=== PATIENT | female | born 1985 | race Caucasian/White ===

== ENCOUNTER → 2017-03-21 | Emergency (ER) | payer OTHER ==
[~2017-03-21] VITALS: Ht 162.6 cm; Wt 75.3 kg
--- NOTE | 2017-03-21 19:25 | Emergency Room Report ---
History of Present Illness Time Seen by 1921 Presenting Problem in Triage Pt arrived:Walked Presenting Problem:PATIENT WAS INMATE AT [facility]. EVERYONE IN CELL WAS BROUGHT IN FOR CLEARANCE. 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 N Clinical Suspician of Infection? N Mental Status: 1 - Regular (Normal Baseline) Sepsis Risk:Low Sepsis Risk Have you (or family members/close friends) recently traveled outside the [place]? N If Yes, where/when: Have you had exposure to infectious disease within the past month? N TB? Other? Specify: I agree with the above history. Source patient, RN notes reviewed, police, EMS Exam Limitations no limitations ALLERGIES Coded Allergies: No Known Allergies (03/21/17) Home Medications Reported Medications No Known Home Medications History Medical History General CAD? No Angina: No [place]: No Hypertension? No Hyperlipidemia? No CHF? No DVT? No PE? No COPD? No Asthma? No Anemia? No GERD? No Gastric ulcers? No GI Bleed? No Hernia? No Thyroid Problems? No Hypothyroidism? No CVA? No Seizures? No Diabetes? No Renal Insuffiency? No End Stage Renal Disease? No UTI? No Stones? No BPH? No GB Disease: No Nephritic Syndrome? No Asplenia? No Hepatitis? No Sickle Cell Disease? No Arthritis? No Migraines? No Cataracts? No Glaucoma? No MRSA? No HIV? No TB? No Anxiety? No Depression? No Cancer? No More? 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 Respiratory no symptoms reported Cardiovascular no symptoms reported Gastrointestinal no symptoms reported Genitourinary no symptoms reported. Musculoskeletal no symptoms reported Skin no symptoms reported Psychiatric/Neurological no symptoms reported Physical Exam Vital Signs Vital Signs Date Time Temp Pulse Resp B/P Pulse O2 O2 Flow FiO2 Ox Delivery Rate 03/21 1938 98.7 84 18 106/74 99 03/21 1905 98.7 84 18 106/74 99 General Appearance normal appearance, WD/WN Eye Exam - bilateral eye normal exam, bilateral eye PERRL, bilateral eye EOMI Ear, Nose, Throat hearing grossly normal, normal ENT inspection Neck normal inspection, non-tender, supple, full range of motion Respiratory Status Yes: trachea midline, chest symmetrical, non tender chest. No: respiratory distress. Lung Sounds bilateral: normal breath sounds, lungs clear. 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 No Results/Orders Laboratory Tests 03/21/171916: Opiates Screen NEGATIVE, Urine Methadone Screen NEGATIVE, Barbiturates NEGATIVE, Phencyclidine Screen NEGATIVE, Amphetamines Screen NEGATIVE, Benzodiazepines Screen NEGATIVE, Cocaine Screen NEGATIVE, Marijuana (THC) Screen NEGATIVE, Urine Color YELLOW, Urine Appearance SL CLOUDY, Urine pH 7.5, Ur Specific [place] 1.020, Urine Protein NEGATIVE, Urine Ketones NEGATIVE, Urine Blood 2+ H, Urine Nitrate NEGATIVE, Urine Bilirubin NEGATIVE, Urine Urobilinogen 0.2, Ur Leukocyte Esterase NEGATIVE, Urine RBC NONE, Urine WBC NONE, Ur Squamous Epith Cells NONE, Urine Bacteria TRACE, Urine Glucose NEGATIVE Orders Procedure Date/time Status URINALYSIS/COMPLETE 03/21 1917 Complete DRUG ABUSE SCREEN (TRIAGE) 03/21 1917 Complete Departure Departure Time of Disposition 1922 Disposition DC Home or Self Care(routine) Clinical Impression Primary Impression: Medical clearance for incarceration Condition STABLE Additional Instructions The patient states that they have been for 3 hours, I contacted poison control, then revised report on exactly and tachycardia. The patient had neither she denied drug use. Discharge Counseling Counseled pt/family regarding diagnosis, test results, home care, follow up needs Prescriptions Current Visit Scripts No Known Home Medications ED Critical Care Critical Care No If Critical Care minutes are documented, the time involved in the performance of seperately reportable procedures was not counted toward critical care time documented. I directly delivered medical care to this critically ill and/or injured patient. Timely evaluation and treatment was necessary to address the significant organ system(s) dysfunction present in this patient.
--- NOTE | 2017-03-21 19:25 | Emergency Room Report ---
History of Present Illness Time Seen by 1921 Presenting Problem in Triage Pt arrived:Walked Presenting Problem:PATIENT WAS INMATE AT [facility]. EVERYONE IN CELL WAS BROUGHT IN FOR CLEARANCE. 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 N Clinical Suspician of Infection? N Mental Status: 1 - Regular (Normal Baseline) Sepsis Risk:Low Sepsis Risk Have you (or family members/close friends) recently traveled outside the [place]? N If Yes, where/when: Have you had exposure to infectious disease within the past month? N TB? Other? Specify: I agree with the above history. Source patient, RN notes reviewed, police, EMS Exam Limitations no limitations ALLERGIES Coded Allergies: No Known Allergies (03/21/17) Home Medications Reported Medications No Known Home Medications History Medical History General CAD? No Angina: No [place]: No Hypertension? No Hyperlipidemia? No CHF? No DVT? No PE? No COPD? No Asthma? No Anemia? No GERD? No Gastric ulcers? No GI Bleed? No Hernia? No Thyroid Problems? No Hypothyroidism? No CVA? No Seizures? No Diabetes? No Renal Insuffiency? No End Stage Renal Disease? No UTI? No Stones? No BPH? No GB Disease: No Nephritic Syndrome? No Asplenia? No Hepatitis? No Sickle Cell Disease? No Arthritis? No Migraines? No Cataracts? No Glaucoma? No MRSA? No HIV? No TB? No Anxiety? No Depression? No Cancer? No More? 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 Respiratory no symptoms reported Cardiovascular no symptoms reported Gastrointestinal no symptoms reported Genitourinary no symptoms reported. Musculoskeletal no symptoms reported Skin no symptoms reported Psychiatric/Neurological no symptoms reported Physical Exam Vital Signs Vital Signs Date Time Temp Pulse Resp B/P Pulse O2 O2 Flow FiO2 Ox Delivery Rate 03/21 1938 98.7 84 18 106/74 99 03/21 1905 98.7 84 18 106/74 99 General Appearance normal appearance, WD/WN Eye Exam - bilateral eye normal exam, bilateral eye PERRL, bilateral eye EOMI Ear, Nose, Throat hearing grossly normal, normal ENT inspection Neck normal inspection, non-tender, supple, full range of motion Respiratory Status Yes: trachea midline, chest symmetrical, non tender chest. No: respiratory distress. Lung Sounds bilateral: normal breath sounds, lungs clear. 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 No Results/Orders Laboratory Tests 03/21/171916: Opiates Screen NEGATIVE, Urine Methadone Screen NEGATIVE, Barbiturates NEGATIVE, Phencyclidine Screen NEGATIVE, Amphetamines Screen NEGATIVE, Benzodiazepines Screen NEGATIVE, Cocaine Screen NEGATIVE, Marijuana (THC) Screen NEGATIVE, Urine Color YELLOW, Urine Appearance SL CLOUDY, Urine pH 7.5, Ur Specific [place] 1.020, Urine Protein NEGATIVE, Urine Ketones NEGATIVE, Urine Blood 2+ H, Urine Nitrate NEGATIVE, Urine Bilirubin NEGATIVE, Urine Urobilinogen 0.2, Ur Leukocyte Esterase NEGATIVE, Urine RBC NONE, Urine WBC NONE, Ur Squamous Epith Cells NONE, Urine Bacteria TRACE, Urine Glucose NEGATIVE Orders Procedure Date/time Status URINALYSIS/COMPLETE 03/21 1917 Complete DRUG ABUSE SCREEN (TRIAGE) 03/21 1917 Complete Departure Departure Time of Disposition 1922 Disposition DC Home or Self Care(routine) Clinical Impression Primary Impression: Medical clearance for incarceration Condition STABLE Additional Instructions The patient states that they have been for 3 hours, I contacted poison control, then revised report on exactly and tachycardia. The patient had neither she denied drug use. Discharge Counseling Counseled pt/family regarding diagnosis, test results, home care, follow up needs Prescriptions Current Visit Scripts No Known Home Medications ED Critical Care Critical Care No If Critical Care minutes are documented, the time involved in the performance of seperately reportable procedures was not counted toward critical care time documented. I directly delivered medical care to this critically ill and/or injured patient. Timely evaluation and treatment was necessary to address the significant organ system(s) dysfunction present in this patient.
[2017-03-21 19:26] LABS: URINE BILIRUBIN - DIPSTICK NEGATIVE (NEG); URINE BLOOD 2+ (NEG)
[2017-03-21 19:38] VITALS: BP 106/74
[2017-03-21 19:38] LABS: AMPHETAMINES/METAMPHETAMINES NEGATIVE ng/mL (<1000)
--- OUTSIDE RECORDS SUMMARY | 2017-03-28 23:10 | External Medical Summary Rpt ---
Author Author [facility] Organization [facility] Address Unknown Phone Unavailable Care Team Providers Care Enamel Applier Name Role Phone DR BRONSON PCP [phone] Encounter [facility] [id number] Date(s): 01/04/17 - 01/04/17 [facility] [address] [place] [address]- Discharge Disposition: OP Self Care or Home Attending Physician: CASS SESAY MD-EMR Admitting Physician: CASS SESAY MD-EMR Referring Physician: BRONSON, SELF REFERRED Reason for Visit ANXIETY Vital Signs Most recent 1 to oldest [Reference Range]: Temperature Tympanic Source (01/04/17 3:42 PM) Temperature Fahrenheit Mode (01/04/17 3:42 PM) Temperature, 98.5 Deg F Fahrenheit (01/04/17 3:42 PM) [96.8-99.7 Deg F] Clinical 36.9 Deg C Temperature, (01/04/17 3:42 PM) C Peripheral 130 bpm Pulse Rate *HI* [60-100 bpm] (01/04/17 3:42 PM) Respiratory 14 Breaths/Min Rate [14-20 (01/04/17 3:42 PM) Breaths/Min] Blood 130/90 mmHg Pressure (01/04/17 3:42 PM) [90-140/60-9 0 mmHg] Oxygen 97 % Saturation (01/04/17 3:42 PM) [94-100 %] Oxygen Room air Therapy Mode (01/04/17 3:42 PM) Height Stated Source (01/04/17 3:42 PM) Height Entry [place] Format (01/04/17 3:42 PM) Height/Lengt 5 ft h, [place] (01/04/17 3:42 PM) (ft) Height/Lengt 2 Inch h [place] (01/04/17 3:42 PM) CLINICALHEIG 157.48 cm HT (01/04/17 3:42 PM) Weight Standing scale Source, ED (01/04/17 3:42 PM) Weight Entry [place] Format (01/04/17 3:42 PM) Weight 160 lb [place] lb (01/04/17 3:42 PM) CLINICALWEIG 72.73 kg HT (01/04/17 3:42 PM) Body Surface 1.74 m2 Area (BSA) (01/04/17 3:42 PM) Body Mass 29.3 kg/m2 Index (BMI) *HI* [19.0-24.0 (01/04/17 3:42 PM) kg/m2] [place] Body 49.73 kg Weight (01/04/17 3:42 PM) Problem List Condition Effective Status Health Informant Dates Status Abdominal Active pain in (Co nfirmed) Carpal 09/08/13 Active tunnel syndrome on right(Confir med) Drug Active abuse(Confir med) Hepatitis Active C(Confirmed) Insufficient Active care(Confirm ed) Maternal Active tobacco abuse(Confir med) Pain in Active patient hip(Confirme d)1 (Co Active nfirmed) (Co Active nfirmed) UTI - Active urinary tract infection in (Co nfirmed) 1right hip Allergies, Adverse Reactions, Alerts Substance Reaction Severity Status sulfa drugs Active Medications cyclobenzaprine (cyclobenzaprine 10 mg oral tablet)1 Tab, Oral, Three Times A Day, As Needed, as needed for spasm, Refills: 0 gabapentin (gabapentin 600 mg oral tablet) 1 Tab, Oral, Three Times A Day, Refills: 1 Ordering provider: DELMER ZULETA MD Results No data available for this section Immunizations No data available for this section Procedures No data available for this section Social History Social History Response Type Smoking Status Current every day smoker Assessment and Plan No data available for this section Hospital Discharge Instructions No data available for this section
--- OUTSIDE RECORDS SUMMARY | 2017-03-28 23:10 | External Medical Summary Rpt ---
Author Author [facility] Organization [facility] Address Unknown Phone Unavailable Care Team Providers Care Director Water And Waste Services Name Role Phone DR BRONSON PCP [phone] Encounter [facility] [id number] Date(s): 12/24/16 - 12/25/[address] [place] [address] [facility] Discharge Diagnosis: Drug intoxication Discharge Diagnosis: Agitation Discharge Disposition: OP Self Care or Home Attending Physician: MALVIN LONG MD-EMR Admitting Physician: MALVIN LONG MD-EMR Referring Physician: FARSHAD DOBSON REFERRED Reason for Visit OD Vital Signs Most recent 1 2 3 to oldest [Reference Range]: Temperature Oral Oral (12/24/16 Source (12/25/16 2:39 AM) 11:17 PM) Temperature Fahrenheit Fahrenheit Mode (12/25/16 2:39 AM) (12/24/16 11:17 PM) Temperature, 98.2 Deg F 100.1 Deg F Fahrenheit (12/25/16 2:39 AM) *HI*(12/24/16 [96.8-99.7 11:17 PM) Deg F] Clinical 36.8 Deg C 37.8 Deg C Temperature, (12/25/16 2:39 AM) (12/24/16 11:17 C PM) Peripheral 97 bpm 130 bpm 108 bpm Pulse Rate (12/25/16 2:39 AM) *HI* *HI*(12/25/16 [60-100 bpm] (12/25/16 1:00 AM) 12:00 AM) Respiratory 18 Breaths/Min 18 Breaths/Min 18 Breaths/Min Rate [14-20 (12/25/16 1:00 AM) (12/25/16 12:00 (12/24/16 11:17 Breaths/Min] AM) PM) Blood 106/82 mmHg 139/117 mmHg 107/77 mmHg Pressure (12/25/16 2:39 AM) (12/25/16 1:00 AM) (12/25/16 12:00 [90-140/60-9 AM) 0 mmHg] Mean 90 mmHg 124.359805 mmHg 87 mmHg (12/25/16 Arterial (12/25/16 2:39 AM) (12/25/16 1:00 AM) 12:00 AM) Pressure (MAP) Mean 121 85 (12/25/16 12:00 Arterial (12/25/16 1:00 AM) AM) Pressure (MAP)-BMDI Oxygen 94 % 89 % 96 % (12/25/16 Saturation (12/25/16 2:39 AM) *LOW* 12:00 AM) [94-100 %] (12/25/16 1:00 AM) Oxygen Room air Room air Room air (12/25/16 Therapy Mode (12/25/16 2:39 AM) (12/25/16 1:00 AM) 12:00 AM) Problem List Condition Effective Status Health Informant [...] Reaction Severity Status sulfa drugs Active Medications gabapentin (gabapentin 600 mg oral tablet) 1 Tab, Oral, Three Times A Day, Refills: 1 Ordering provider: DELMER ZULETA MD gabapentin (Neurontin 600 mg oral tablet) 1 Tab, Oral, Every Day, Refills: 0 Ordering provider: DELMER ZULETA MD Results No data available for this section Immunizations No data available for this section Procedures No data available for this section Social History Social History Response Type Smoking Status Current every day smoker Assessment and Plan No data available for this section Hospital Discharge Instructions Patient EducationPolysubstance Abuse
--- OUTSIDE RECORDS SUMMARY | 2017-03-28 23:10 | External Medical Summary Rpt ---
Author Author [facility] Organization [facility] Address Unknown Phone Unavailable Care Team Providers Care Grocery Stocker Name Role Phone DR BRONSON PCP [phone] Encounter [facility] [id number] Date(s): 12/24/16 - 12/25/[address] [place] [address] [facility] Discharge Diagnosis: Drug intoxication Discharge Diagnosis: Agitation [...] [90-140/60-9 AM) 0 mmHg] Mean 90 mmHg 124.609000 mmHg 87 mmHg (12/25/16 Arterial (12/25/16 2:39 [...]
--- OUTSIDE RECORDS SUMMARY | 2017-03-28 23:10 | External Medical Summary Rpt ---
Author Author [facility] Organization [facility] Address Unknown Phone Unavailable Care Team Providers Care Business Analyst Sales Operations Name Role Phone DR BRONSON PCP [phone] Encounter [facility] [id number] Date(s): 01/04/17 - 01/04/17 [facility] [address] [place] [address]- Discharge Disposition: OP Self Care or Home [...] Stated Source (01/04/17 3:42 PM) Height Entry [place] Format (01/04/17 3:42 PM) Height/Lengt 5 ft h, [place] (01/04/17 3:42 PM) (ft) Height/Lengt 2 Inch h [place] (01/04/17 3:42 PM) CLINICALHEIG 157.48 cm HT (01/04/17 3:42 PM) Weight Standing scale Source, ED (01/04/17 3:42 PM) Weight Entry [place] Format (01/04/17 3:42 PM) Weight 160 lb Citizen [place] lb (01/04/17 3:42 PM) CLINICALWEIG 72.73 kg HT (01/04/17 3:42 PM) Body Surface 1.74 m2 Area (BSA) (01/04/17 3:42 PM) Body Mass 29.3 kg/m2 Index (BMI) *HI* [19.0-24.0 (01/04/17 3:42 PM) kg/m2] [place] Body 49.73 kg Weight (01/04/17 3:42 PM) [...]
--- OUTSIDE RECORDS SUMMARY | 2017-03-28 23:16 | External Medical Summary Rpt | CCD ---
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 D 0. NG J 5 S MG CL IN TA IC BL ET PH AR MA C CL 00 06 06 00 30 30 BU 24 NOBLE Ac ON 60 -1 -1 .0 RN 77 YS ti AZ 32 2- 8- 00 IN 71 ve EP 94 20 20 G DA AM 83 09 09 SP 2 RI D 0. NG J 5 S MG CL IN TA IC BL ET PH AR MA C ME 00 06 06 00 30 30 BU 24 NOBLE Ac TH 14 -1 -1 .0 RN 77 YS ti OC 31 2- 8- 00 IN 70 ve AR 29 20 20 G DA BA 20 09 09 SP MO 5 RI D L NG J 75 S 0 CL MG IN IC TA BL PH ET AR MA C CL 00 05 05 00 30 30 BU 24 NOBLE Ac ON 09 -1 -2 .0 RN 68 YS ti AZ 30 5- 1- 00 IN 87 ve EP 83 20 20 G DA AM 21 09 09 SP 0 RI D 0. NG J 5 S MG CL IN TA IC BL ET PH AR MA C VA 50 04 05 00 30 3 ME 25 NE Ac ED 38 -2 -0 .0 DI 86 WS ti NI 30 0- 7- 00 34 WA ve SO 04 20 20 CE NG LO 24 09 09 NT ER NE [address] FF UG RE MG S Y /5 L ML SO LN HY 10 04 04 00 30 30 BU [address] 70 -1 -2 .0 RN 55 YS ti OX 20 0- 3- 00 IN 89 ve YZ 01 20 20 G DA IN 10 09 09 SP E 1 RI D HC NG J L S 25 CL IN MG IC TA PH BL AR ET MA C CL 00 04 04 00 30 30 BU 24 NOBLE Ac ON 1 -2 .0 RN 58 YS ti AZ 30 7- 3- 00 IN 37 ve EP 83 20 20 G DA AM 21 09 09 SP 0 RI D 0. NG J 5 S MG CL IN TA IC BL ET PH AR MA C CL 57 03 03 00 30 30 EA 81 NOBLE Ac ON 66 -0 -[address] 84 YS ti AZ 40 9- 6- 00 69 ve EP 27 20 20 BE DA AM [address] D 0. AD J 5 T MG CL IN TA IC BL ET PH AR MA CY CL 00 02 02 00 30 30 BU 24 NOBLE Ac ON 09 -1 -2 .0 RN 32 YS ti AZ 30 3- 6- 00 IN 80 ve EP 83 20 20 G DA AM 20 09 09 SP 5 RI D 0. NG J 5 S MG CL IN TA IC BL ET PH AR MA C CL 00 01 01 00 6. 3 H 14 BR Ac ON 18 -0 -1 00 & 74 OD ti AZ 50 5- 5- 0 N 48 SK ve EP [address] 4 Y AM 40 09 09 UG KE 1 5 S NN IN ET MG C H M TA BL ET ME 68 01 01 00 30 30 H 14 KA Ac LO 38 -0 -1 .0 & 74 RA ti XI 20 7- 5- 00 N 99 VIET[place]ESE ve CA [address] 9 L M 00 09 09 UG AJ 7. 5 S IT 5 IN H MG C K TA BL ET TR 00 12 12 00 6. 3 RI 10 DA Ac AM 09 -0 -1 00 TE 21 NS ti AD 30 7- 8- 0 93 ER ve OL 05 20 20 AI 5 EA 80 08 08 D U HC 1 PH LO L AR ZA 50 M NN #3 E MG 91 6 TA BL ET 63 12 12 00 30 10 CO 46 GI Ac 30 -0 -1 .0 MM 71 LL ti 40 8- 8- 00 UN 14 ve 65 20 20 IT DM 70 [address] REY UG UL A OF K MA NC HE ST ER CL 00 11 12 00 60 30 H 14 BR Ac ON 18 -0 -1 .0 & 69 OD ti AZ 50 3- 8- 00 N 96 SK ve EP [address] 1 Y AM 40 08 08 UG KE 1 5 S NN IN ET MG C H M TA BL ET 00 12 12 00 10 3 RI 10 DA Ac 09 -0 -1 .0 TE 21 NS ti 10 7- 8- 00 93 ER ve 69 20 20 AI 2 EA 01 08 08 D U 0 PH LO AR ZA M NN #3 E 91 6 Immunization Name Date Rout CVX Reac Dose Comm Prov Is Faci e tion ent ider Refu lity Give sed n RHO( 04-2 NAYLA No NAYLA D) 5-20 [facility] 12 [facility] HOSP GLOB ITAL ITAL ULIN DANDRE N FULL -DOS E IM Results Labs Lab Lab Date Result Refere Interp Status Commen Order Detail nces retati t Range on Bacteria XXX Ql Wet Prep (01-30-2017 20:30) T No No complet vaginal 017 Trichom Trichom ed is XXX 20:30 onas onas Ql Wet seen seen Prep Clue No Clue No Clue complet Cells 017 cells cells ed XXX Ql 20:30 seen seen Wet Prep WBC XXX 3+ No complet Ql Wet 017 WBC's WBC's ed Prep 20:30 seen seen Hydatid No No complet Cyst 017 Hyphal Hyphal ed XXX Wet 20:30 element element Prep s seen s seen Yeast No No complet Genital 017 yeast yeast ed Ql Wet 20:30 seen seen Prep MORIS Prep XXX (01-30-2017 20:30) MORIS No No complet Prep 017 yeast yeast ed Nail 20:30 or or hyphal hyphal element element s seen s seen Procedures Procedure DOS Code Location Performer Comment GROUND A0425 [facility] DAV[facility] MILEAGE 7 FAYETTE FAYETTE PER URBAN URBAN STATUTE COG[facility] [facility]T MILE AMBULANCE A0429 [facility] DAV[facility] SERVICE 7 FAYETTE FAYETTE BLS URBAN URBAN EMERGENCY COGOVT COGOVT TRANSPORT GROUND A0425 [facility] MILEAGE 7 FIRE & FIRE & PER EMERGENCY EMERGENCY STATUTE S S MILE AMB A0427 [facility] SERVICE 7 FIRE & FIRE & ALS EMERGENCY EMERGENCY EMERGENCY S S TRANSPORT LEVEL 1 ECG 32685 [facility] ROUTINE 7 LTH ECG SPECIALIS W/LEAST TS OF 12 LDS I&R ONLY RADEX 86697 MYLESATIO JAEL HAND 6 N MINIMUM 3 [facility] V[facility] 49380 [facility]K DISCHARGE 6 MEDICAL DAY ASSOCIATE MANAGEMEN S T 30 MIN/< SBSQ 44642 [facility] 6 MEDICAL [place] CARE/DAY ASSOCIATE 25 S MINUTES CREATININ 08094 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 E OTHER 6 KATY KATY SOURCE HOLDINGS HOLDINGS IADNA 76195 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 HEPATITIS 6 KATY KATY C QUANT HOLDINGS HOLDINGS & REVERSE TRANSCRIP TION BLOOD 78936 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 COUNT 6 KATY KATY COMPLETE HOLDINGS HOLDINGS AUTO&AUTO DIFRNTL WBC 25 35169 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 HYDROXY 6 KATY KATY INCLUDES HOLDINGS HOLDINGS FRACTIONS IF PERFORMED GLUCOSE 37678 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 QUANTITAT 6 KATY KATY CHRISTIANO BLOOD HOLDINGS HOLDINGS XCPT REAGENT STRIP LACTATE 17709 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 DEHYDROGE 6 KATY KATY NASE LDH HOLDINGS HOLDINGS BLOOD 78647 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 COUNT 6 KATY KATY COMPLETE HOLDINGS HOLDINGS AUTO&AUTO DIFRNTL WBC IADNA 30157 MEDICAL MEDICAL NEISSERIA 6 DIAGNOSTI DIAGNOSTI [facility] C LAB LLC GONORRHOE AE AMPLIFIED PROBE TQ IADNA 38931 MEDICAL MEDICAL CHLAMYDIA 6 [facility]AG[facility]I DIAGNOSTI [facility] C LAB LLC TRACHOMAT IS AMPLIFIED PROBE TQ CREATININ 88299 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 E OTHER 6 KATY [place] [address] 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 BLOOD/URI 6 KATY KATY C ACID HOLDINGS [place] 22689 EV KRI EV KRI UTERUS 6 W/DETAIL TR 1ST GESTATION TRANSFERA 68706 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 SE 6 KATY KATY ASPARTATE HOLDINGS HOLDINGS AMINO AST SGOT TRANSFERA 61547 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 SE 6 KATY KATY ALANINE HOLDINGS HOLDINGS AMINO ALT SGPT IADNA 94898 MEDICAL MEDICAL TRICHOMON 6 DIAGNOSTI DIAGNOSTI C LAB LLC C LAB LLC VAGINALIS AMPLIFIED PROBE TECH IADNA 04177 MEDICAL MEDICAL TRICHOMON 6 DIAGNOSTI DIAGNOSTI C LAB LLC C LAB LLC VAGINALIS AMPLIFIED PROBE TECH IADNA 37284 MEDICAL MEDICAL ZULAY 6 DIAGNOSTI DIAGNOSTI SPECIES C LAB LLC C LAB LLC AMPLIFIED PROBE TQ IADNA 41236 MEDICAL MEDICAL GARDNEREL 6 DIAGNOSTI DIAGNOSTI LA C LAB LLC C LAB LLC VAGINALIS AMPLIFIED PROBE TQ IADNA 71867 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 CHLAMYDIA 6 KATY KATY HOLDINGS HOLDINGS TRACHOMAT IS AMPLIFIED PROBE TQ CULTURE 15407 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 BACTERIAL 6 KATY KATY HOLDINGS HOLDINGS QUANTTATI VE COLONY COUNT URINE CREATININ 73111 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 E OTHER 6 KATY KATY SOURCE HOLDINGS HOLDINGS IADNA 11936 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 NEISSERIA 6 KATY KATY HOLDINGS HOLDINGS GONORRHOE AE AMPLIFIED PROBE TQ IADNA NOS 32621 MEDICAL MEDICAL 6 DIAGNOSTI DIAGNOSTI AMPLIFIED C LAB LLC C [place] [address] [place] 5 MEDICAL ASIF UTERUS SERV LIMITED FOUNDATIO 1/> N FETUSES [place] PREG 11703 [place] UTERUS 5 MEDICAL ASIF REAL TIME SERV W/IMAGE FOUNDATIO DCMTN N TRANSVAG AMB A0427 [facility] DAV[facility] SERVICE 5 FAYETTE FAYETTE ALS URBAN URBAN EMERGENCY COGOVT COGOVT TRANSPORT LEVEL 1 GROUND A0425 DAVID DAVID MILEAGE 5 FAYETTE FAYETTE PER URBAN URBAN STATUTE COGOVT COGOVT MILE DUP-SCAN 73994 KRISTOFER CONDE ARTL GERARDO 5 MEDICAL ASIF ABDL/PEL/ SERV SCROT&/RP FOUNDATIO R ORGN N COM GROUND A0425 [facility] 4 FIRE & FIRE & PER EMERGENCY EMERGENCY STATUTE S S MILE AMBULANCE A0429 [facility] SERVICE 4 FIRE & FIRE & BLS EMERGENCY EMERGENCY EMERGENCY S S TRANSPORT SIMPLE 77563 [facility] REPAIR 4 REGIONAL REGIONAL SCALP/NEC MEDICAL MEDICAL K/AX/JOY T/TRUNK 2.5CM/< RADEX 85438 RADI[facility] ENRIQUEZ SEA SPINE 4 LUMBOSACR ASSOCIATE AL S OF ALONZO MINIMUM 4 VIEWS AMBULANCE A0429 [facility] SERVICE 4 FIRE & FIRE & BLS EMERGENCY EMERGENCY EMERGENCY S S TRANSPORT GROUND A0425 [facility] 4 FIRE & FIRE & PER EMERGENCY EMERGENCY STATUTE S S MILE RADIOLOGI 86549 RADIOLOGY ENRIQUEZ SEA C EXAM 4 SACROILIA ASSOCIATE C JOINTS S OF ALONZO 3/MORE VIEWS URINALYSI 48783 [facility] 4 [facility] HE[facility] IA SCR CARE XCPT CULTURE/D IPSTICK URINE 60182 [facility]INE V[facility] 4 [facility] TEST HEALTH VISUAL CARE COLOR CMPRSN METHS NEURAXIAL 36095 [facility] LABOR 4 ANESTHESI GAR ANALG/ANE A PSC S PLND VAGINAL DELIVERY 08559 [facility] NONSTRESS 4 [facility] TEST HEALTH CARE VAGINAL 25317 [facility] [place] DELIVERY 4 [facility] ONLY HEALTH W/POSTPAR CARE HUMZA CARE OTHER 7359 [facility] MANUALLY 4 EAST EAST ASSISTED DELIVERY URINALYSI 58733 [facility] 4 PRIMARY JR SENAIT BACTERIUR HEALTH IA SCR CARE XCPT CULTURE/D IPSTICK 94957 TERE V[place] NONSTRESS 4 PRIMARY JR SENAIT TEST HEALTH CARE DOPPLER 53645 TERE VELOUDIS VELOCIMET 4 PRIMARY JR SENAIT RY HEALTH UMBILICAL CARE ARTERY US PREG 47593 TERE VELOUDIS UTERUS 4 PRIMARY JR SENAIT REAL TIME HEALTH F/U CARE TRNSABDL PER FETUS URINALYSI 21235 TERE VELOUDIS S 4 PRIMARY JR SENAIT BACTERIUR HEALTH IA SCR CARE XCPT CULTURE/D IPSTICK 02241 TERE [place] BIOPHYSIC 4 PRIMARY JR SENAIT AL HEALTH PROFILE CARE W/O NON-STRES S TESTING 09532 TERE [place] BIOPHYSIC 4 PRIMARY JR SENAIT AL HEALTH PROFILE CARE W/O NON-STRES S TESTING US PREG 18697 TERE [place] UTERUS 4 PRIMARY JR SENAIT AFTER 1ST HEALTH TRIMEST CARE GESTATION URINALYSI 72593 TERE VELOUDIS S 4 PRIMARY JR SENAIT BACTERIUR HEALTH IA SCR CARE XCPT CULTURE/D IPSTICK DOPPLER 08648 TERE V[place] VELOCIMET 4 PRIMARY JR SENAIT RY HEALTH UMBILICAL CARE ARTERY DOPPLER 14663 [facility] VELOCIMET 4 PRIMARY JR SENAIT RY HEALTH UMBILICAL CARE ARTERY IADNA 87214 ASSOCIATE ANGLE FRANKLIN STREPTOCO 4 D CCUS PATHOLOGI [facility] ST[facility] AMPLIFIED PROBE TQ US PREG 61262 TERE VELOUDIS UTERUS 4 PRIMARY JR SENAIT REAL TIME HEALTH F/U CARE TRNSABDL PER FETUS URINALYSI 70597 LOCY VELOUDIS S 4 PRIMARY JR SENAIT BACTERIUR HEALTH IA SCR CARE XCPT CULTURE/D IPSTICK COLLECTIO 00385 ASSOCIATE ANGLE FRANKLIN N VENOUS 4 D BLOOD PATHOLOGI VENIPUNCT STS LLC URE 53254 TERE V[place] BIOPHYSIC 4 PRIMARY JR SENAIT AL HEALTH PROFILE CARE W/O NON-STRES S TESTING URINALYSI 38468 [place] S 4 PRIMARY [facility] IA SCR CARE XCPT CULTURE/D IPSTICK URINALYSI 92802 LOCY VELOUDIS S 4 [facility] SCR CARE XCPT CULTURE/D IPSTICK URINALYSI 30608 TERE VELOUDIS S 4 PRIMARY [facility] IA SCR CARE XCPT CULTURE/D IPSTICK BLOOD 53843 [facility] TYPING 4 [facility] SEROLOGIC RH (D) ANTIBODY 15859 [facility] SCREEN 4 [facility] RBC EACH SERUM TECHNIQUE URINALYSI 24418 TERE V[place]OU[place] S 4 PRIMARY [facility] IA SCR CARE XCPT CULTURE/D IPSTICK BLOOD 98403 [facility] TYPING 4 [facility] SEROLOGIC [place]BO [place] PREG 73649 TERE [place] UTERUS 4 [facility] W[facility] HE[facility] CARE TR 1ST GESTATION THERAPEUT 35102 [facility] IC 4 EAST EAST PROPHYLAC TIC/DX INJECTION SUBQ/IM URINALYSI 41302 TERE RASHEEDOUDIS S 4 PRIMARY [facility] IA SCR CARE XCPT CULTURE/D IPSTICK COLLECTIO 72415 ASSOCIATE ANGLE SCHULTE VENOUS 4 D BLOOD PATHOLOGI VENIPUNCT [facility] URE URINE 16908 [facility] 4 ST GLE TEST BLUEGRASS VISUAL INC COLOR CMPRSN METHS CULTURE [address] QUANTTATI VE COLONY COUNT URINE URNLS DIP [address] STICK/TAB LET REAGENT AUTO MICROSCOP Y THERAPEUT [address] PROPHYLAC TIC/DX INJECTION SUBQ/IM GROUND A[address] PER EMERGENCY EMERGENCY STATUTE AMBULA AMBULA MILE AMB A[address] ALS EMERGENCY EMERGENCY EMERGENCY AMBULA AMBULA TRANSPORT LEVEL [address] TEST IADNA [address] GONORRHOE AE DIRECT PROBE TQ IADNA 35449 PATHOLOGY PICKLESIM PAPILLOMA 2 & ER JR LISA VIRUS CYTOLOGY HUMAN LAB AMPLIFIED PROBE TQ CYTP C/V 88069 PATHOLOGY PICKLESIM AUTO THIN 2 & ER JR LISA LYR CYTOLOGY PREPJ SCR LAB MNL RESCR PHYS THERAPEUT [address] PROPHYLAC TIC/DX INJECTION SUBQ/IM US PREG 10414 [facility]ASM[facility] UTERUS 2 AFTER 1ST TRIMEST 1/1ST GESTATION 48590 [facility] BIOPHYSIC 2 AL PROFILE W/O NON-STRES S TESTING COMPREHEN [address] METABOLIC PANEL CULTURE [address] QUANTTATI VE COLONY COUNT URINE DRUG SCR G0434 [address] CHROMATOG RAPHIC; ANY NUMBER PT ENC URNLS DIP [address] STICK/[place] [address] HYDRATION EACH ADDITIONA L HOUR THER [address] NJX IV PUSH SINGLE/1S T SBST/DRUG BLOOD [address] COMPLETE AUTO&[place] [address] THERAPEUT 95985 PHYSICIAN SINK DONTAE IC 2 SERVICES PROPHYLAC OF TIC/DX MEMORI INJECTION SUBQ/IM RHO(D) [address] GLOBULIN HUMAN FULL-DOSE IM URNLS DIP 67146 PHYSICIAN PHYSICIAN 2 SERVICES SERVICES STICK/TAB OF OF LET RGNT MEMORI MEMORI NON-AUTO W/O MICRSCP COLLECTIO [address] [place] [address] [facility]ASM[facility] RETROPERI 2 TONEAL [place] [address] PHYSICIAN PHYSICIAN 2 SERVICES SERVICES UTERUS OF OF LIMITED MEMORI MEMORI 1/> FETUSES DRUG SCR G0434 [facility] NOT 2 WOMEN'S WOMEN'S CHROMATOG CARE PLLC CARE PLLC RAPHIC; [place] [address]40 [place] MADELINE UTERUS 2 WOMEN'S FRA AFTER 1ST CARE PLLC TRIMEST 1/ GESTATION DRUG SCR G0434 [facility] NOT 2 WOMEN'S WOMEN'S CHROMATOG CARE PLLC CARE PLLC RAPHIC; ANY NUMBER PT ENC CYTP C/V 29880 PICKLESIM PATHOLOGY AUTO THIN 1 ER JR LISA & LYR CYTOLOGY PREPJ SCR LAB [place] P[place] 78726 MADELINE MADELINE UTERUS 1 FRA FRA REAL TIME W/IMAGE DCMTN TRANSVAG IADNA 58407 PICKLESIM PATHOLOGY NEISSERIA 1 ER JR LISA & CYTOLOGY GONORRHOE LAB AE AMPLIFIED PROBE TQ IADNA 86524 PICKLESIM PATHOLOGY CHLAMYDIA 1 ER JR LISA & CYTOLOGY TRACHOMAT LAB IS AMPLIFIED PROBE TQ INJECTION [address] [place] [address] [place]OMY[place] [address] [place] [address] THERAPY/P ROPHYLAXI S /DX 1ST TO [address] DAPTOMYCI N [address] INJE[address] DAPTOMYCI N [address] [place] [address] DAPTOMYCI N 1 MG SBSQ 83026 [facility] 1 OSCAR OSCAR CARE/DAY 25 MINUTES SBSQ 04465 [facility] 1 OSCAR OSCAR CARE/DAY 25 MINUTES SBSQ 94263 [facility] 1 OSCAR OSCAR CARE/DAY 25 MINUTES SBSQ 64775 [facility] 1 MOHSEN MOHSEN CARE/DAY 25 MINUTES THROMBOPL [address] TIME PARTIAL PLASMA/WH OLE BLOOD GROUND A0425 [facility] MILEAGE [address] [place] [address] PER EMERGENCY EMERGENCY STATUTE AMBULA AMBULA MILE AMBULANCE A0429 [facility] SERVICE [address] [place] [address] EMERGENCY EMERGENCY EMERGENCY AMBULA AMBULA TRANSPORT URNLS DIP [address] STICK/TAB LET REAGENT AUTO MICROSCOP Y COMPREHEN 15243 [facility] SIVE [address] [place] [address] METABOLIC PANEL PROTHROMB 32508 [facility] IN TIME [address] [place] [address] B[address] COMPLETE AUTO&[place] [address] [facility] HEAD/BRAI [address] [place] [address] N W/[place] [address] [facility] CERVICAL 0 [facility] ALB SPINE W/O CONTRAST MATERIAL RADEX 22213 [facility] FOOT 0 [facility] ALB COMPLETE MINIMUM 3 VIEWS RADIOLOGI 27690 [facility] C 0 [facility] ALB EXAMINATI ON TIBIA & FIBULA 2 VIEWS CIRCUMCIS 37059 OB RAÚL ION 0 HOSPITALI FRA W/CLAMP/O ST GROUP TH DEV W/[place] L[place]EL V 75150 [place] SURG 0 [facility] PATHOLOGY CLINIC PSC GROSS&OSMAN ROSCOPIC EXAM NEURAXIAL 29525 [facility] 0 ANESTHESI GAR ANALG/ANE A PSC S PLND VAGINAL DELIVERY VAGINAL 56820 SIVA PANIAGUA DELIVERY 0 [place] ONLY W/POSTPAR HUMZA CARE OBSERVATI 11270 AVINASH ZAMBRANO ON/INPATI 0 LEOPOLDO CARVER [facility] CARE 55 E MINUTES [facility] G0378 AVINASH DA SILVA OBSERVATI 0 ALISA CUELLAR ON [facility] PER HOUR CUL 18777 AVINASH DA SILVA PRSMPTV 0 ALISA CUELLAR PTHGNC [facility] SCRN W/COLONY ESTIMJ 67647 AVINASH DA SILVA BIOPHYSIC 0 ALISA CUELLAR AL [facility] W/O NON-STRES S TESTING COLLECTIO [address] [facility] VENOUS [address] [place] [address] BLOOD VENIPUNCT URE ANTIBODY [address] RBC EACH SERUM TECHNIQUE BLOOD [address] SEROLOGIC RH (D) BLOOD [address] SEROLOGIC ABO THERAPEUT [address] PROPHYLAC TIC/DX INJECTION SUBQ/IM ECHO 46297 SIVA PANIAGUA, 0 MAI A MAI A CARDIOVAS C W/WO M-MODE [place]ORDING [place] PREG 07484 SIVA PANIAGUA, UTERUS 0 MAI A MAI A W/DETAIL TR 1ST GESTATION THROMBOPL 64308 [facility] ASTIN [address] [place] [address] TIME PARTIAL PLASMA/WH OLE BLOOD COLLECTIO 53871 [facility] N VENOUS [address] [place] [address] BLOOD VENIPUNCT URE COMPREHEN 30784 [facility] SIVE [address] [place] [address] METABOLIC PANEL CREATINE [address] FRACTION ONLY PROTHROMB 08192 [facility] IN [address] NATRIURET [address] [place] [address] [facility] TROPONIN [address] [place] [address] QUANTITAT CHRISTIANO BLOOD [address] COMPLETE AUTO&AUTO DIFRNTL WBC CREATINE [address] TOTAL US PREG [address] [facility] RAD[facility]VANT UTERUS 0 AGE LLC AGE LLC AFTER 1ST TRIMEST GESTATION THERAPEUT [address] PROPHYLAC TIC/DX INJECTION SUBQ/[place] [address] AVINASH DA SILVA 0 BRECKINRI PARISAINRI [facility] 1/> FETUSES US PREG 55846 RADIOLOGY GRAY, UTERUS 0 SERVICES DHIRENKUM REAL TIME AR W/IMAGE DCMTN TRANSVAG CULTURE 48393 AVINASH DA SILVA BACTERIAL 0 BRECKINRI PARISAINRI [facility] VE COLONY COUNT URINE URINE 82495 EAMON EAMON 0 [facility] VISUAL CENTER CENTER COLOR CMPRSN METHS URINE [address] TEST VISUAL COLOR CMPRSN METHS LEVEL III 68316 AMES, AMES, SURG 9 [facility] PATHOLOGY GROSS&OSMAN ROSCOPIC EXAM LAPAROSCO 16798 [facility] SURG [address] [place] [address] CHOLECYST ECTOMY ECG 16374 [facility] ROUTINE [address] [place] [address] ECG W/LEAST 12 LDS TRCG ONLY W/O I&R ANES 57235 PHYSICIAN CHAMBERLA INTRAPERI 9 S [facility] UPPER OF ABDOMEN [facility] W/[place] [address] RADADVANT DOWNING, ABDOMEN 9 AGE LLC NITESH C W/CONTRAS T MATERIAL 3D 77868 [facility] DOWNING, RENDERING 9 [facility] NITESH C W/INTERP & POSTPROCE SS SUPERVISI ON CT PELVIS 16000 [facility], 9 [facility] NITESH C W/CONTRAS T MATERIAL CT PELVIS 54163 [facility], 9 [facility] NITESH C W/CONTRAS T MATERIAL 3D 43929 [facility], RENDERING 9 [facility] NITESH C W/INTERP & [place] [address] [facility] DOWN[facility], ABDOMEN 9 [facility] NITESH C W/CONTRAS T MATERIAL GROUND A[address] PER EMERGENCY EMERGENCY STATUTE MILE AMBULANCE AMBULANCE AMB A0427 [facility] [address] [place] [address] EMERGENCY EMERGENCY EMERGENCY AMBULANCE AMBULANCE TRANSPORT LEVEL 1 AMB A0427 [facility] [address] [place] [address] EMERGENCY EMERGENCY EMERGENCY AMBULANCE AMBULANCE TRANSPORT LEVEL 1 RADEX 01575 [facility] RIBS [address] W/POSTERO ANT CH MINIMUM 3 VIEWS RADIOLOGI [address] EXAMINAT[place] ON K[place] [address] [place] [address] [facility] DOWNING, HEAD/BRAI 9 [facility] NITESH C N W/O CONTRAST MATERIAL GROUND A[address] PER EMERGENCY EMERGENCY [place] [address] [facility], CERVICAL 9 [facility] NITESH C SPINE W/O CONTRAST MATERIAL 3D [address] W/INTERP & POSTPROCE SS SUPERVISI ON THERAPEUT [address] PROPHYLAC TIC/DX INJECTION SUBQ/IM AREO MASK A7015 [facility] USED W/ 9 CENTER CENTER DME NEB DRUGS DRUGS ADMN SET A7003 [facility] SM VOL 9 CENTER CENTER NONFILTR DRUGS DRUGS PNEUMAT NEBULIZR DISPBL NEBULIZER E0570 [facility] WITH 9 CENTER CENTER [place] [address] 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 FREE 9 [employer] [place] [address] 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 THYROID 9 [facility] [employer] STIMULATI HOLDING HOLDING NG [facility] [address] [facility], [facility] MANAGEMEN T 30 MIN/< SBSQ [address] 25 MINUTES SBSQ [address] 25 MINUTES RADIOLOGI [address] [facility] [place] PAD[place], C 8 RADIOLOGY GREGORY G EXAMINATI ON CHEST SINGLE VIEW FRONTAL INITIAL [address] 50 MINUTES Encounters Encounter Start End Date Code Location Performer Type Date EMERGENCY 18418 KEYLA REYNOSO 7 7 [facility] DEPARTMEN T VISIT EMERGENCY HIGH/URGE NT SEVERITY OFFICE 28780 ALEXIS GRACIA OUTPATIEN 6 6 D FAMILY SHE T VISIT MEDICAL 25 CE MINUTES OFFICE 75392 ALEXIS DICKEY OUTPATIEN 6 6 D FAMILY T VISIT MEDICAL 15 CE MINUTES EMERGENCY 62636 KEYLA ROJO 6 6 JR CAL FLORES DEPARTMEN T VISIT EMERGENCY MODERATE SEVERITY EMERGENCY 78281 KEYLA DELGADO 6 6 ANNA WILLS DEPARTMEN T VISIT EMERGENCY MODERATE SEVERITY EMERGENCY 38862 LIZA DE JESUS 6 6 [facility] DEPARTMEN T VISIT MODERATE SEVERITY EMERGENCY 64588 [facility] SONG 5 5 [facility] DEPARTMEN CARE T VISIT PHYSICIAN MODERATE S SEVERITY EMERGENCY 62712 JUNIPER CASTRO GABRIELA 4 4 [facility] DEPARTMEN T VISIT EMERGENCY MODERATE SEVERITY [facility] [place] - 4 4 REGIONAL OUTPATIEN MEDICAL T EMERGENCY 16910 JUNIPER CIFUENTES ABE 4 4 [facility] DEPARTMEN T VISIT EMERGENCY MODERATE SEVERITY EMERGENCY 43898 [facility] 4 4 [facility] DEPARTMEN MEDICAL T VISIT LOW/MODER SEVERITY EMERGENCY 61610 JUNIPER BELL MAR 4 4 [facility] DEPARTMEN T VISIT EMERGENCY MODERATE SEVERITY EMERGENCY 09119 JUNIPER CIFUENTES ABE 4 4 [facility] DEPARTMEN T VISIT EMERGENCY MODERATE SEVERITY EMERGENCY 52612 JUNIPER FORTICH 4 4 [facility] BILLIE DEPARTMEN T VISIT EMERGENCY MODERATE SEVERITY EMERGENCY 76602 JUNIPER SOTINGEAN 4 4 [facility] U REGAN DEPARTMEN T VISIT EMERGENCY MODERATE SEVERITY OFFICE 86160 [place] [facility] 4 4 PRIMARY JR SENA[facility] T VISIT HEALTH 15 CARE MINUTES OFFICE 10460 [place] GAYATHRI OUTPATIEN 4 4 FAMILY PATRIA T [facility] CARE MINUTES CENTER EMERGENCY 14546 ACS SONG 4 4 PRIMARY [facility] DEPARTMEN CARE T VISIT PHYSICANS MODERATE M SEVERITY [facility]OSPITAL [facility] - 4 4 [facility] INPATIENT OFFICE 74619 [place] OUT[facility] 4 4 PRIMARY JR SENA[facility] T VISIT HEALTH 15 CARE MINUTES OFFICE 15974 [place] OUT[facility] 4 4 PRIMARY JR SENAIT T VISIT HEALTH 15 CARE MINUTES OFFICE 98599 [place] OUT[facility] 4 4 PRIMARY JR SENAIT T VISIT HEALTH 15 CARE MINUTES [facility] [place] - 4 4 REGIONAL OUTPATIEN MEDICAL T EMERGENCY 34123 JUNIPER JED L 4 4 [facility] DEPARTMEN T VISIT EMERGENCY MODERATE SEVERITY EMERGENCY 72702 [facility] 4 4 [facility]REGENCY [facility] VISIT LIMITED/M INOR PROB EMERGENCY 66108 [place] 4 4 REGIONAL DEPARTMEN MEDICAL T VISIT MODERATE SEVERITY [facility] [place] - 4 4 REGIONAL OUTPATIEN MEDICAL T OFFICE 21709 [place] [facility] 4 4 PRIMARY JR SENAIT T VISIT HEALTH 15 CARE MINUTES OFFICE 22441 [place] [facility] 4 4 PRIMARY JR SENAIT T VISIT HEALTH 15 CARE MINUTES OFFICE 24112 [place] OUTPAT[facility] 4 4 PRIMARY JR SENAIT T VISIT HEALTH 15 CARE MINUTES OFFICE 99538 [place] OUT[facility] 4 4 PRIMARY JR SENAIT T VISIT HEALTH 15 CARE MINUTES OFFICE 30335 [place] OUTPATI[facility] 4 4 PRIMARY JR SENAIT T VISIT HEALTH 25 CARE MINUTES OFFICE 74988 [place] OUT[facility] 4 4 PRIMARY JR SENAIT T VISIT HEALTH 15 CARE MINUTES [facility] - 4 4 [facility] 53499 [place] [facility] 4 4 PRIMARY JR SENAIT T VISIT HEALTH 25 CARE MINUTES OFFICE 10267 [facility] [address] [facility] [address] DEPARTMEN T VISIT MODERATE SEVERITY HOSPITAL [address] [facility] [address] [facility] EMERG[facility] 75702 [place]O [place] [address] DEPARTMEN T VISIT MODERATE SEVERITY EMERGENCY 00369 [facility] 2 2 H[facility]PITAL DEPARTMEN T VISIT LIMITED/M [facility] [place] [address] HOSPITAL OUTPATIEN T EMERGENCY [address] DEPARTMEN T VISIT LIMITED/M [facility] [address] OUTPATI T EMERGENCY [address] DEPARTMEN T VISIT HIGH/URGE NT SEVERITY EMERGENCY 01396 SILVIALI SILVIAARON 2 2 ANDREA ANDREA DEPARTMEN T VISIT MODERATE SEVERITY HOSPITAL [address] OUTPATI T OFFICE 60737 PHYSICIAN SINK DONTAE OUTPATIEN 2 2 SERVICES T VISIT OF 15 MEMORI MINUTES [facility] [address] [facility] T OFFICE 96612 PHYSICIAN SINK DONTAE OUTPATIEN 2 2 SERVICES T NEW 30 OF MINUTES [facility] OFFICE 33521 DE LA TORRE MADELINE OUTPATIEN 2 2 [facility] 15 MINUTES OFFICE 29600 DE LA TORRE MADELINE OUTPATIEN 2 2 [facility] 15 MINUTES OFFICE 46217 ELLENDALE MADELINE OUTPATIEN 2 2 [facility] 15 MINUTES OFFICE 59820 ELLENDALE MADELINE OUTPATIEN 2 2 [facility] 10 MINUTES OFFICE 84070 ELLENDALE MADELINE OUTPATIEN 2 2 [facility] 15 MINUTES OFFICE 35299 MADELINE MADELINE OUTPATIEN 2 2 FRA FRA T VISIT 15 MINUTES OFFICE 81667 ELLENDALE PEARCE C OUTPATIEN 1 1 W[facility]EN'S T [facility]IT [facility]ARE PLL[facility] 15 MINUTES OFFICE 52280 MADELINE MADELINE OUTPATIEN 1 1 FRA FRA T VISIT 15 MINUTES OFFICE 23038 MADELINE MADELINE OUTPATIEN 1 1 RUPA GOODE T VISIT 15 MINUTES OFFICE 39311 MADELINE MADELINE OUTPATIEN 1 1 RUPA Encinas NEW 30 MINUTES [facility] [place] [address] 1 [facility] [place] [address] 1 [facility] [place] [address] 1 [facility] [place] [address] 1 [facility] EMERGENCY 65755 MARCI COVARRUBIAS 1 1 [facility] VISIT MODERATE SEVERITY EMERGENCY 67191 PHYS SVC AXIBAL 1 1 OF [facility] T VISIT HIGH/URGE NT SEVERITY EMERGENCY 27649 PHYS SVC AXIBAL DEPT [address] [facility] HIGH SEVERITY& THREAT FUNCJ EMERGENCY [address] VISIT HIGH/URGE NT SEVERITY HOSPITAL [address] [facility] EM[facility] 34476 PHYS SVC AXIBAL 0 0 OF [facility] T VISIT MODERATE SEVERITY EMERGENCY 04108 PHYSICIAN FEE BAR 0 0 [facility] VISIT MODERATE SEVERITY [facility]OSPITAL [place] [address] 0 [facility] EM[facility] [address] VISIT HIGH/URGE NT SEVERITY EMERGENCY 81016 PHYS SVC AXIBAL 0 0 OF [facility] T VISIT MODERATE SEVERITY HOSPITAL [facility] 0 0 [facility] [place] [address] [facility] 54909 DEQUAN GORMANEN 0 0 KYLIE/HY ANGELO E T VISIT [facility] 15 MINUTES EMERGENCY 28305 [facility] 0 0 HOSPITAL DEPARTMEN T VISIT MODERATE SEVERITY HOSPITAL [facility] - 0 0 HOSPITAL OUTPATIEN T HOSPITAL [facility] - 0 0 HOSPITAL OUTPATIEN T EMERGENCY 54540 PHYS SVC MARCI, 0 0 OF [facility] T VISIT MODERATE SEVERITY EMERGENCY 13954 [facility] 0 0 HOSPITAL DEPARTMEN T VISIT LIMITED/M INOR PROB EMERGENCY 80125 PHYS SVC AXIBAL, 0 0 OF [facility] TRACI S [facility] T VISIT MODERATE SEVERITY HOSPITAL [facility] - 0 0 HOSPITAL OUTPATIEN T EMERGENCY 44472 PHYS SVC ALSAHLI, 0 0 OF [facility] HAITHAM [facility] T VISIT MODERATE SEVERITY EMERGENCY 94237 [facility] 0 0 [place] [facility] DGE T VISIT HOSPITAL LIMITED/M INOR PROB [facility] - 0 0 [place] [facility] D[facility] T HOSPITAL EMERGENCY 62166 [facility] GONSALES, 0 0 [facility] [facility] DGE T VISIT HOSPITAL LOW/MODER EMERGENCY SEVERITY SERVICES [facility] - 0 0 [place] OUTPATIEN DGE T HOSPITAL OFFICE 31415 AUTUMN NUR 0 0 KYLIE/HY RIO L T VISIT [facility] 15 MINUTES OFFICE 10599 AUTUMN NUR 0 0 KYLIE/HY RIO L T VISIT [facility] 15 MINUTES HOSPITAL [facility] - 0 0 [place] OUTPATIEN DGE T HOSPITAL OFFICE 34155 AUTUMN NUR 0 0 KYLIE/HY RIO L T VISIT [facility] 25 MINUTES OFFICE 17898 EAMON KNUTSON OUTPATIEN [address] [facility] - 9 9 [facility] OFFICE 07300 PHYS SVC JANNET CASAS 9 9 OF [facility] HOSP INC NEW/ESTAB PATIENT 30 MIN OFFICE 49737 [facility] 9 9 BARB KRYSTYNA T VISIT MED 15 CLINIC MINUTES OFFICE 91351 [facility] 9 9 MEDICAL JUAN Macias T VISIT CLINIC 15 MINUTES EMERGENCY 21535 PHYS SVC AXIBAL, 9 9 OF [facility] T VISIT HIGH/URGE NT SEVERITY EMERGENCY 61050 PHYS SVC ANJANA DEPT 9 9 OF [facility] HOSP [facility] HIGH SEVERITY& THREAT FUNCJ EMERGENCY 64877 [facility] 9 9 [facility] T VISIT LIMITED/M INOR [facility] - 9 9 [facility] - 9 9 [facility] EMERGENCY 43487 PHYS SVC AXIBAL[facility] 9 9 OF [facility] T VISIT MODERATE SEVERITY EMERGENCY 13428 [facility] 9 9 [facility] T VISIT HIGH/URGE NT SEVERITY OFFICE 57948 [facility] 9 9 MEDICAL CINDY Weir T VISIT CLINIC 15 MINUTES EMERGENCY 50173 PHYSICIAN HEADLEY 8 8 [facility] T VISIT HOSPITAL MODERATE SEVERITY EMERGENCY 58574 [facility] 8 8 [facility] T VISIT LIMITED/M INOR PROB HOSPITAL [facility] - 8 8 [facility] OFF[facility] 38062 AUTUMN CELAYA 8 8 EVELIA Encinas VISIT CLINIC 15 MINUTES
--- OUTSIDE RECORDS SUMMARY | 2017-03-28 23:16 | External Medical Summary Rpt | CCD ---
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 92254 AVINASH DA SILVA PRSMPTV 0 ALISA CUELLAR [facility] SCRN W/COLONY ESTIMJ 16695 AVINASH DA SILVA BIOPHYSIC 0 ALISA CUELLAR AL [facility] W/O NON-STRES S TESTING COLLECTIO 69876 [facility] VENOUS [address] [place] [address] BLOOD VENIPUNCT URE ANTIBODY [address] RBC EACH SERUM TECHNIQUE BLOOD [address] SEROLOGIC RH (D) BLOOD [address] SEROLOGIC ABO THERAPEUT [address] PROPHYLAC TIC/DX INJECTION SUBQ/IM ECHO 19349 SIVA PANIAGUA, 0 MAI A MAI A CARDIOVAS C W/WO M-MODE [place]ORD[place] PREG 29169 SIVA PANIAGUA, UTERUS 0 MAI A MAI A W/DETAIL TR 1ST GESTATION THROMBOPL 02408 [facility] ASTIN [address] [place] [address] TIME PARTIAL PLASMA/WH OLE BLOOD COLLECTIO 64532 [facility] N VENOUS [address] [place] [address] BLOOD VENIPUNCT URE COMPREHEN 82985 [facility] SIVE [address] [place] [address] METABOLIC PANEL CREATINE [address] FRACTION ONLY PROTHROMB 62804 [facility] IN [address] NATRIURET [address] [place] [address] [facility] TROPONIN [address] [place] [address] QUANTITAT CHRISTIANO BLOOD [address] COMPLETE AUTO&AUTO DIFRNTL WBC CREATINE [address] [place] 26017 [facility] RADADVANT UTERUS 0 AGE LLC AGE LLC AFTER 1ST TRIMEST GESTATION THERAPEUT [address] PROPHYLAC TIC/[place] INJECTION SUBQ[place] [address] AVINASH DA SILVA 0 BRECKINRI PARISAINRI [facility] 1/> FETUSES US PREG 74969 RADIOLOGY GRAY, UTERUS 0 SERVICES DHIRENKUM REAL TIME AR W/IMAGE DCMTN TRANSVAG CULTURE 03986 AVINASH DA SILVA BACTERIAL 0 BRECKINRI PARISAINRI [facility] VE COLONY COUNT URINE URINE 41399 EAMON EAMON 0 [facility] CENTER COLOR CMPRSN METHS URINE [address] TEST VISUAL COLOR CMPRSN METHS LEVEL III 95547 AMES, AMES, SURG 9 [facility] PATHOLOGY GROSS&OSMAN ROSCOPIC EXAM LAPAROSCO 68450 [facility] SURG [address] [place] [address] CHOLECYST ECTOMY ECG 61919 [facility] ROUTINE [address] [place] [address] ECG W/LEAST 12 LDS TRCG ONLY W/O I&R ANES 33359 PHYSICIAN CHAMBERLA INTRAPERI 9 S IN [facility] UPPER OF ABDOMEN [facility] W/[place] [address] [facility] DOWNING, ABDOMEN 9 [facility]GE [facility] NITESH C W/CONTRAS T MATERIAL 3D 24155 [facility] DOWNING, RENDERING 9 [facility] [employer] NITESH C W/INTERP & POSTPROCE SS SUPERVISI ON CT PELVIS 92722 [facility] DOWNING, 9 [facility] [employer] NITESH C W/CONTRAS T MATERIAL CT PELVIS 92223 [facility] DOWNING, 9 [facility] [employer] NITESH C W/CONTRAS T MATERIAL 3D 02885 [facility] DOWNING, RENDERING 9 [facility] NITESH C W/INTERP & [place] [address] RADADVANT DOWNING, ABDOMEN 9 [facility]GE [employer] NITESH C W/CONTRAS T MATERIAL GROUND A[address] PER EMERGENCY EMERGENCY STATUTE MILE AMBULANCE AMBULANCE AMB A0427 [facility] [address] [place] [address] EMERGENCY EMERGENCY EMERGENCY AMBULANCE AMBULANCE TRANSPORT LEVEL 1 AMB A0427 [facility] [address] [place] [address] EMERGENCY EMERGENCY EMERGENCY AMBULANCE AMBULANCE TRANSPORT LEVEL 1 RADEX 01498 [facility] RIBS [address] W/POSTERO ANT CH MINIMUM 3 VIEWS RADIOLOGI [address] EXAMINAT[place] K[place] [address] [place] [address] [facility] DOWNING, HEAD/BRAI 9 [facility] [employer] NITESH C N W/O CONTRAST MATERIAL GROUND A[address] PER EMERGENCY EMERGENCY [place] [address] [facility] DOWNING, CERVICAL 9 [facility] NITESH C SPINE W/O CONTRAST MATERIAL 3D [address] W/INTERP & POSTPROCE SS SUPERVISI ON THERAPEUT [address] PROPHYLAC TIC/DX INJECTION SUBQ/IM AREO MASK A7015 [facility] USED W/ 9 CENTER CENTER DME NEB DRUGS DRUGS ADMN SET A7003 [facility] SM VOL 9 CENTER CENTER NONFILTR DRUGS DRUGS PNEUMAT NEBULIZR DISPBL NEBULIZER E0570 [facility] WITH 9 CENTER C[place] [address] 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 FREE 9 AMERIC AMERIC [place] [address] 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 THYROID 9 AMERIC AMERIC STIMULATI HOLDING HOLDING NG HORMONE TSH [facility] [address] [facility], [facility] 8 [facility] MANAGEMEN T 30 MIN/< SBSQ [address] 25 MINUTES SBSQ [address] 25 MINUTES RADIOLOGI 69544 [facility] [place] PADMIN[place], C 8 RADIOLOGY GREGORY G EXAMINATI ON CHEST SINGLE VIEW FRONTAL INITIAL [address] 50 MINUTES Encounters Encounter Start End Date Code Location Performer Type Date EMERGENCY 93632 KEYLA REYNOSO 7 7 [facility] DEPARTMEN T VISIT EMERGENCY HIGH/URGE NT SEVERITY OFFICE 21754 ALEXIS GRACIA OUTPATIEN 6 6 D FAMILY SHE T VISIT MEDICAL 25 CE MINUTES OFFICE 51953 ALEXIS DICKEY OUTPATIEN 6 6 D FAMILY T VISIT MEDICAL 15 CE MINUTES EMERGENCY 50274 KEYLA ROJO 6 6 JR [facility] DEPARTMEN T VISIT EMERGENCY MODERATE SEVERITY EMERGENCY 92901 KEYLA DELGADO 6 6 ANNA WILLS DEPARTMEN T VISIT EMERGENCY MODERATE SEVERITY EMERGENCY 37961 LIZA DE JESUS 6 6 [facility] DEPART[facility] T VISIT MODERATE SEVERITY EMERGENCY 77550 [facility] 5 5 [facility] DEPARTMEN CARE T VISIT PHYSICIAN MODERATE S SEVERITY EMERGENCY 90055 JUNIPER CASTRO GABRIELA 4 4 [facility] DEPARTMEN T VISIT EMERGENCY MODERATE SEVERITY [facility] - 4 4 [facility]IONAL OUTPATIEN MEDICAL T EMERGENCY 19972 JUNIPER CIFUENTES ABE 4 4 [facility] DEPARTMEN T VISIT EMERGENCY MODERATE SEVERITY EMERGENCY 78415 [facility] 4 4 [facility] DEPARTMEN MEDICAL T VISIT LOW/MODER SEVERITY EMERGENCY 15405 JUNIPER BELL MAR 4 4 [facility] DEPARTMEN T VISIT EMERGENCY MODERATE SEVERITY EMERGENCY 23897 JUNIPER CIFUENTES ABE 4 4 [facility] DEPARTMEN T VISIT EMERGENCY MODERATE SEVERITY EMERGENCY 68467 JUNIPER FORTICH 4 4 [facility] BILLIE DEPARTMEN T VISIT EMERGENCY MODERATE SEVERITY EMERGENCY 03913 JUNIPER SOTINGEAN 4 4 [facility] U REGAN DEPARTMEN T VISIT EMERGENCY MODERATE SEVERITY OFFICE 99001 [place] OUTPATI[facility] 4 4 PRIMARY JR SENAIT T VISIT HEALTH 15 CARE MINUTES OFFICE 46939 [facility] GAYATHRI OUTPATIEN 4 4 FAMILY PATRIA T [facility] CARE MINUTES CENTER EMERGENCY 17710 [facility] SONG 4 4 [facility]IMARY [facility] DEPARTMEN CARE T VISIT PHYSICANS MODERATE M SEVERITY [facility] - 4 4 [facility] INPATIENT OFFICE 68838 [place] OUTPATIEN 4 4 PRIMARY JR SENAIT T VISIT HEALTH 15 CARE MINUTES OFFICE 21851 [place] OUTPATIEN 4 4 PRIMARY JR SENAIT T VISIT HEALTH 15 CARE MINUTES OFFICE 11005 [place] OUTPATIEN 4 4 PRIMARY JR SENAIT T VISIT HEALTH 15 CARE MINUTES [facility]OSP[facility] - 4 4 REGIONAL OUTPATIEN MEDICAL T EMERGENCY 73131 JUNIPER JED L 4 4 [facility] DEPARTMEN T VISIT EMERGENCY MODERATE SEVERITY EMERGENCY 25329 [facility] 4 4 [facility] LIMITED/M INOR PROB EMERGENCY 45825 [facility] 4 4 REGIONAL DEPARTMEN MEDICAL T VISIT MODERATE SEVERITY [facility]OSP[facility] - 4 4 REGIONAL OUTPATIEN MEDICAL T OFFICE 78479 [place] OUTPATI[facility] 4 4 PRIMARY JR SENAIT T VISIT HEALTH 15 CARE MINUTES OFFICE 69651 [place] OUTPATIEN 4 4 PRIMARY JR SENAIT T VISIT HEALTH 15 CARE MINUTES OFFICE 28343 [place] OUTPATIEN 4 4 PRIMARY JR SENAIT T VISIT HEALTH 15 CARE MINUTES OFFICE 02265 [place] OUTPATIEN 4 4 PRIMARY JR SENAIT T VISIT HEALTH 15 CARE MINUTES OFFICE 90573 [place] OUTPATIEN 4 4 PRIMARY JR SENAIT T VISIT HEALTH 25 CARE MINUTES OFFICE 12632 [place] OUTPATIEN 4 4 PRIMARY JR SENAIT T VISIT HEALTH 15 CARE MINUTES [facility] - 4 4 [facility] 68853 [place] OUTPATIEN 4 4 PRIMARY JR SENAIT T VISIT HEALTH 25 CARE MINUTES OFFICE 38223 [facility] [address] [facility] EM[facility] [address] DEPARTMEN T VISIT MODERATE SEVERITY HOSPITAL [address] [facility] [address] [facility] EMERG[facility] 28184 [place] [address] DEPARTMEN T VISIT MODERATE SEVERITY EMERGENCY 06382 [facility] 2 2 HOSPITAL DEPARTMEN T VISIT LIMITED/M [facility] [place] [address] HOSPITAL OUTPATIEN T EMERGENCY [address] DEPARTMEN T VISIT LIMITED/M [facility] [address] OUTPATI T EMERGENCY [address] DEPARTMEN T VISIT HIGH/URGE NT SEVERITY EMERGENCY 11291 SILVIALI SILVIAARON 2 2 ANDREA ANDREA DEPARTMEN T VISIT MODERATE SEVERITY HOSPITAL [address] OUTPATI T OFFICE 29518 PHYSICIAN SINK DONTAE OUTPATIEN 2 2 SERVICES T VISIT OF 15 MEMORI MINUTES [facility] [address] [facility] 41014 PHYSICIAN SINK DONTAE OUTPATIEN 2 2 SERVICES T NEW 30 OF MINUTES [facility] OFFICE 20803 DE LA TORRE MADELINE OUTPATIEN 2 2 [facility]OMEN[facility]S [facility] T VISIT [facility]ARE PLL[facility] 15 MINUTES OFFICE 82078 DE LA TORRE MADELINE OUTPATIEN 2 2 WOMEN'S FRA T VISIT CARE PLLC 15 MINUTES OFFICE 87716 MADISON MADELINE OUTPATIEN 2 2 WOMEN[facility]S FRA T VISIT CARE PLLC 15 MINUTES OFFICE 45477 M[facility]ISON MADELINE OUTPATIEN 2 2 WOMEN'S FRA T VISIT CARE PLL[facility] 10 MINUTES OFFICE 91249 MADISON MADELINE OUTPATIEN 2 2 WOMEN'S FRA T VISIT CARE PLLC 15 MINUTES OFFICE 07775 MADELINE MADELINE OUTPATIEN 2 2 FRA FRA T VISIT 15 MINUTES OFFICE 19268 MADISON PEARCE C OUTPATIEN 1 1 WOMEN'S T VISIT CARE PLLC 15 MINUTES OFFICE 09288 MADELINE MADELINE OUTPATIEN 1 1 FRA FRA T VISIT 15 MINUTES OFFICE 09855 MADELINE MADELINE OUTPATIEN 1 1 RUPA GOODE T VISIT 15 MINUTES OFFICE 46346 MADELINE MADELINE OUTPATIEN 1 1 RUPA Encinas NEW 30 MINUTES H[facility] [place] [address] 1 [facility] [place] [address] 1 [facility] [place] [address] 1 [facility] [place] [address] 1 [facility] EMERGENCY 22874 MARCI COVARRUBIAS 1 1 [facility] VISIT MODERATE SEVERITY EMERGENCY 22073 PHYS SVC AXIBAL 1 1 OF [facility] CAR [facility] T VISIT HIGH/URGE NT SEVERITY EMERGENCY 30627 PHYS SVC AXIBAL DEPT 1 1 OF [facility] HIGH SEVERITY& THREAT FUNCJ EMERGENCY [address] VISIT HIGH/URGE NT SEVERITY HOSPITAL [address] [facility] EM[facility]GENC[facility] 26307 PHYS SVC AXIBAL 0 0 OF [facility] T VISIT MODERATE SEVERITY EMERGENCY 24638 PHYSICIAN FEE BAR 0 0 [facility] VISIT MODERATE SEVERITY HOSPITAL [place] [address] 0 [facility] EMERGENCY [address] VISIT HIGH/URGE NT SEVERITY EMERGENCY 15319 PHYS SVC AXIBAL 0 0 OF [facility] CAR [facility] T VISIT MODERATE SEVERITY HOSPITAL [facility] 0 0 [facility] [place] [address] [facility] 98107 DEQUAN GORMANEN 0 0 KYLIE/HY ANGELO E T VISIT [facility] 15 MINUTES EMERGENCY 03605 [facility] 0 0 HOSPITAL DEPARTMEN T VISIT MODERATE SEVERITY HOSPITAL [facility] - 0 0 HOSPITAL OUTPATIEN T HOSPITAL [facility] - 0 0 HOSPITAL OUTPATIEN T EMERGENCY 38584 PHYS SVC MARCI, 0 0 OF [facility] LEXYYA [facility] T VISIT MODERATE SEVERITY EMERGENCY 82467 [facility] 0 0 HOSPITAL DEPARTMEN T VISIT LIMITED/M INOR PROB EMERGENCY 44778 PHYS SVC AXIBAL, 0 0 OF [facility] TRACI S [facility] HOSP INC T VISIT MODERATE SEVERITY HOSPITAL [facility] - 0 0 HOSPITAL OUTPATIEN T EMERGENCY 16024 PHYS SVC ALSAHLI, 0 0 OF [facility] HAITHAM [facility] HOSP INC T VISIT MODERATE SEVERITY EMERGENCY 28385 [facility] 0 0 BRECKINRI [facility] DGE T VISIT HOSPITAL LIMITED/M INOR PROB HOSPITAL AVINASH - 0 0 BRECKINRI OUTPATIEN DGE T HOSPITAL EMERGENCY 76672 AVINASH GONSALES, 0 0 BRECKINRI [facility] DGE T VISIT HOSPITAL LOW/MODER EMERGENCY SEVERITY SERVICES HOSPITAL AVINASH - 0 0 BRECKINRI OUTPATIEN DGE T HOSPITAL OFFICE 01353 AUTUMN NUR 0 0 KYLIE/HY RIO L T VISIT [facility] 15 MINUTES OFFICE 24622 AUTUMN NUR 0 0 KYLIE/HY RIO L T VISIT [facility] 15 MINUTES HOSPITAL AVINASH - 0 0 BRECKINRI OUTPATIEN DGE T HOSPITAL OFFICE 66226 AUTUMN NUR 0 0 KYLIE/HY RIO L T VISIT [facility] 25 MINUTES OFFICE 71458 EAMON KNUTSON OUTPATIEN [address] [facility] - 9 9 [facility] OFFICE 42288 PHYS SVC JANNET CASAS 9 9 OF [facility] HOSP INC NEW/ESTAB PATIENT 30 MIN OFFICE 67291 SANGEETA [facility] 9 9 BARB KRYSTYNA T VISIT MED 15 CLINIC MINUTES OFFICE 48705 [facility] 9 9 MEDICAL JUAN [place] T VISIT CLINIC 15 MINUTES EMERGENCY 68213 PHYS SVC AXIBAL, 9 9 OF [facility] T VISIT HIGH/URGE NT SEVERITY EMERGENCY 64128 PHYS SVC ANJANA DEPT 9 9 OF [facility] HIGH SEVERITY& THREAT FUNCJ EMERGENCY 96781 [facility] 9 9 [facility] T VISIT LIMITED/M INOR [facility] - 9 9 [facility] - 9 9 [facility] EMERGENCY 99858 PHYS SVC AXIBAL, 9 9 OF [facility] T VISIT MODERATE SEVERITY EMERGENCY 89145 [facility] 9 9 [facility] T VISIT HIGH/URGE NT SEVERITY OFFICE 13160 [facility] 9 9 MEDICAL CINDY Weir T VISIT CLINIC 15 MINUTES EMERGENCY 41268 PHYSICIAN HEADLEY 8 8 [facility] T VISIT HOSPITAL MODERATE SEVERITY EMERGENCY 86636 [facility] 8 8 [facility] T VISIT LIMITED/M INOR PROB HOSPITAL [facility] - 8 8 [facility] OFF[facility] 09253 AUTUMN CELAYA 8 8 EVELIA Encinas VISIT CLINIC 15 MINUTES
--- OUTSIDE RECORDS SUMMARY | 2017-03-28 23:22 | External Medical Summary Rpt | CCD ---
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 [address] GONORRHOE AE DIRECT PROBE TQ IADNA 59087 PATHOLOGY PICKLESIM PAPILLOMA 2 & ER JR LISA VIRUS CYTOLOGY HUMAN LAB AMPLIFIED PROBE TQ CYTP C/V 91175 PATHOLOGY PICKLESIM AUTO THIN 2 & ER JR LISA LYR CYTOLOGY PREPJ SCR LAB MNL RESCR PHYS THERAPEUT [address] PROPHYLAC TIC/DX INJECTION SUBQ/IM US PREG 04289 [facility] UTERUS 2 AFTER 1ST TRIMEST 1/ GESTATION 24186 [facility] BIOPHYSIC 2 AL PROFILE W/O NON-STRES S TESTING COMPREHEN [address] METABOLIC PANEL URNLS DIP [address] STICK/TAB LET REAGENT AUTO MICROSCOP Y BLOOD [address] COMPLETE AUTO&[place] [address] [facility] INFUSION [address] [place] [address] HYDRATION EACH ADDITIONA L HOUR THER 12971 [facility] PROPH/DX [address] [place] [address] NJX IV PUSH SINGLE/1S T SBST/DRUG DRUG SCR G0434 [facility] NOT [address] [place] [address] CHROMATOG RAPHIC; ANY NUMBER PT ENC CULTURE 77652 [facility] BACTERIAL [address] [place] [address] QUANTTAT[place] [address] [facility] LIPASE [address] [place] [address] THERAPEUT 30171 PHYSICIAN SINK DONTAE IC 2 SERVICES PROPHYLAC OF TIC/DX MEMORI INJECTION SUBQ/IM RHO(D) 66528 [facility] IMMUNE [address] [place] [address] GLOBULIN HUMAN FULL-DOSE IM COLLECTIO 31855 [facility] N VENOUS [address] [place] [address] BLOOD VENIPUNCT URE URNLS DIP 60790 PHYSICIAN PHYSICIAN 2 SERVICES SERVICES STICK/TAB OF OF LET RGNT MEMORI MEMORI NON-AUTO W/[place] [address] GOGIA VALERY GOGIA VALERY RETROPERI 2 TONEAL REAL [place] [address] PHYSICIAN PHYSICIAN 2 SERVICES SERVICES UTERUS OF OF LIMITED MEMORI MEMORI 1/> FETUSES DRUG SCR G0434 [facility] 2 WOMEN'S WOMEN'S CHROMATOG CARE PLLC CARE PLLC RAPHIC; ANY NUMBER PT ENC US PREG 27997 [place] MADELINE UTERUS 2 WOMEN'S FRA AFTER 1ST CARE PLLC TRIMEST 1/ GESTATION DRUG SCR G0434 [facility] 2 WOMEN'S WOMEN'S CHROMATOG CARE PLLC CARE PLLC RAPHIC; ANY NUMBER PT ENC IADNA 21260 PICKLESIM PATHOLOGY CHLAMYDIA 1 ER JR LISA & CYTOLOGY TRACHOMAT LAB IS AMPLIFIED PROBE TQ CYTP C/V 94515 PICKLESIM PATHOLOGY AUTO THIN 1 ER JR LISA & LYR CYTOLOGY PREPJ SCR LAB MNL RESCR PHYS IADNA 85804 PICKLESIM PATHOLOGY NEISSERIA 1 ER JR LISA & CYTOLOGY GONORRHOE LAB [place] T[place] 66033 MADELINE MADELINE UTERUS 1 FRA FRA REAL TIME W/[place] [address] THERAPY/P ROPHYLAXI S /DX 1ST TO 1 HR INJECTION J0878 [address] DAPTOMYCI N 1 MG INJECTION J0878 [address] DAPTOMYCI N 1 MG INJECTION J0878 [address] DAPTOMYCI N 1 MG INJECTION J0878 [address] DAPTOMYCI N 1 MG SBSQ 17962 [place] [address] OSCAR OSCAR CARE/DAY 25 MINUTES SBSQ 25945 [place] [address] OSCAR OSCAR CARE/DAY 25 MINUTES SBSQ 35418 [place] [address] OSCAR OSCAR CARE/DAY 25 MINUTES SBSQ 62360 [facility] 1 MOHSEN MOHSEN CARE/DAY [address] MIN[address]ES BLOOD [address] COMPLETE AUTO&AUTO DIFRNTL WBC AMBULANCE A0429 [facility] SERVICE [address] [place] [address] BL EMERGENCY EMERGENCY EMERGENCY AMBULA AMBULA TRANSPORT COMPREHEN [address] METABOLIC PANEL URNLS DIP [address] STICK/TAB LET REAGENT AUTO MICROSCOP Y GROUND A0425 [facility] [address] PER EMERGENCY EMERGENCY STATUTE AMBULA AMBULA MILE PROTHROMB 64058 [facility] IN [address] THROMBOPL [address] TIME PARTIAL PLASMA/[place] B[place] [address] [facility] GOGIA VALERY HEAD/BRAI 0 AGE LLC N W/O CONTRAST MATERIAL RADEX 05822 [facility] BRENDA FOOT 0 AGE LLC ALB COMPLETE MINIMUM 3 VIEWS RADIOLOGI 88609 [facility] BRENAD C 0 AGE LLC ALB EXAMINATI ON TIBIA & [place] [address] [place] [address] [facility] BRENDA CERVICAL 0 AGE LLC ALB SPINE W/O CONTRAST MATERIAL CIRCUMCIS 23694 OB RAÚL ION 0 HOSPITALI FRA W/CLAMP/O ST GROUP TH DEV W/[place] L[place]EL V 06358 [place] SURG 0 [facility] PATHOLOGY CLINIC PSC GROSS&OSMAN ROSCOPIC EXAM NEURAXIAL 82916 [facility] 0 ANESTHESI GAR ANALG/ANE A PSC S PLND VAGINAL DELIVERY VAGINAL 85541 PANIAGUA SIVA DELIVERY 0 GEOR[place]IE GEORGIE ONLY W/POSTPAR HUMZA CARE OBSERVATI 24210 AVINASH ZAMBRANO ON/INPATI 0 LEOPOLDO CARVER ENT [facility]ALTH[facility]ARE 55 E MINUTES HOSPITAL G0378 AVINASH DA SILVA OBSERVATI 0 ALISA CUELLAR ON [facility] PER HOUR 94681 RADIOLOGY PAMPATI BIOPHYSIC 0 SERVICES [facility] AL PROFILE W/O NON-STRES S TESTING CUL 43709 AVINASH DA SILVA PRSMPTV 0 PARISAINTAM CUELLAR PTHGNC [facility] SCRN W/COLONY ESTIMJ BLOOD [address] SEROLOGIC RH (D) THERAPEUT [address] PROPHYLAC TIC/DX INJECTION SUBQ/IM COLLECTIO [address] BLOOD VENIPUNCT URE ANTIBODY [address] RBC EACH SERUM TECHNIQUE BLOOD [address] [place] PREG 77227 SIVA PANIAGUA, UTERUS 0 MAI A MAI A W/DETAIL TR 1ST GESTATION ECHO 08997 SIVA PANIAGUA, 0 MAI A MAI A CARDIOVAS C W/WO M-MODE RECORDING NATRIURET [address] [place] [address] QUANTITAT CHRISTIANO BLOOD [address] COMPLETE AUTO&AUTO DIFRNTL WBC THROMBOPL [address] TIME PARTIAL PLASMA/WH OLE BLOOD COLLECTIO [address] BLOOD VENIPUNCT URE COMPREHEN [address] METABOLIC PANEL CREATINE [address] FRACTION ONLY PROTHROMB 27357 [facility] IN TIME [address] [place] [address] HOSPITAL CREATINE [address] [place] [address]9035 RAD[facility] RADADVANT UTERUS 0 AGE LLC AGE LLC AFTER 1ST TRIMEST GESTATION THERAPEUT [address] PROPHYLAC TIC/DX INJECTION SUBQ/[place] [address] AVINASH DA SILVA 0 ALISA CUELLAR UTERUS E [facility] 1/> FETUSES US PREG 80909 RADIOLOGY GRAY, UTERUS 0 SERVICES DHIRENKUM REAL TIME AR W/IMAGE DCMTN TRANSVAG CULTURE 83680 AVINASH DA SILVA BACTERIAL 0 YAMILETCKINTAM [facility]I [facility] VE COLONY COUNT URINE URINE 47579 EAMON EAMON 0 [facility] CENTER COLOR CMPRSN METHS URINE [address] TEST VISUAL COLOR CMPRSN METHS ANES 89356 PHYSICIAN CHAMBERLA INTRAPERI 9 S IN [facility] UPPER OF [facility]BDOMEN [facility] W/LAPS NOS LAPAROSCO 95963 [facility] PY SURG [address] [place] [address] CHOLECYST ECTOMY LEVEL III 92515 AMES, AMES, SURG [address] [place] [address] PATHOLOGY GROSS&OSMAN ROSCOPIC EXAM ECG 76768 [facility] ROUTINE [address] [place] [address] ECG W/LEAST 12 LDS TRCG ONLY W/O I&R 3D 17000 RADADVANT DOWNING, RENDERING 9 AGE LLC NITESH C W/INTERP & [place] [address] RADADVANT DOWNING, ABDOMEN 9 AGE LLC NITESH C W/CONTRAS T MATERIAL CT PELVIS 29826 [facility] DOWNING, 9 AGE LLC NITESH C W/CONTRAS T MATERIAL [place] PELVIS 37786 [facility] DOWNING, 9 AGE LLC NITESH C W/[place] [address] [facility]ADVANT DOWNING, ABDOMEN 9 AGE LLC NITESH C W/CONTRAS T MATERIAL 3D 22839 [facility] DOWNING, RENDERING 9 AGE TAMMY Macias W/INTERP & POSTPROCE SS SUPERVISI ON AMB A0427 [facility] [address] [place] [address] EMERGENCY EMERGENCY EMERGENCY AMBULANCE AMBULANCE TRANSPORT LEVEL [address] PER EMERGENCY EMERGENCY STATUTE MILE AMBULANCE AMBULANCE GROUND A[address] PER EMERGENCY EMERGENCY STATUTE MILE AMBULANCE AMBULANCE AMB A0427 [facility] [address] [place] [address] EMERGENCY EMERGENCY EMERGENCY AMBULANCE [place] [address] [place] [address] SPINE W/O CONTRAST MATERIAL RADEX 13220 RADADVANT DOWNING, RIBS UNI 9 AGE TAMMY Macias W/POSTERO ANT CH MINIMUM 3 VIEWS RADIOLOGI 38347 [facility] DOWNING, C 9 AGE TAMMY Macias EXAMINATI ON KNEE 3 VIEWS THERAPEUT [address] PROPHYLAC TIC/DX INJECTION SUBQ/IM 3D [address] W/INTERP & [place] [address] RADAD[facility] DOWNING, HEAD/BRAI 9 AGE TAMMY Macias N W/O CONTRAST MATERIAL ADMN SET A7003 [facility] SM VOL 9 CENTER DENT NONFILTR DRUGS DRUGS PNEUMAT NEBULIZR DISPBL NEBULIZER E0570 [facility] WITH 9 CENTER DENT COMPRESSO DRUGS DRUGS R AREO MASK A7015 [facility] USED W/ 9 CENTER [place] [address] 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 FREE 9 AMERIC AMERIC [place] [address] 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 THYROID 9 AMERIC AMERIC STIMULATI HOLDING HOLDING NG HORMONE TSH [facility] [address] [facility] [address] [place] [address] MANAGEMEN T 30 MIN/< SBSQ [address]/DAY CLINIC 25 MINUTES SBSQ [address]/DAY CLINIC 25 MINUTES INITIAL 93346 [facility] 8 MEDICAL MANUELITO J CARE/DAY CLINIC 50 MINUTES RADIOLOGI 82557 CNTRL Colleen PEREZ 8 RADIOLOGY GREGORY G EXAMINATI ON CHEST SINGLE VIEW FRONTAL Encounters Encounter Start End Date Code Location Performer Type Date EMERGENCY 52391 JUNIPER EDGARDO 7 7 [facility] DEPARTMEN T VISIT EMERGENCY HIGH/URGE NT SEVERITY OFFICE 97658 CUMBERLAN SAMIA OUTPATIEN 6 6 D FAMILY SHE T VISIT MEDICAL 25 CE MINUTES OFFICE 52966 CUMBERLAN CHAMBERS AMA OUTPATIEN 6 6 D FAMILY T VISIT MEDICAL 15 CE MINUTES EMERGENCY 76719 JUNALLEY CUNHASON 6 6 [place] [facility] DEPARTMEN T VISIT EMERGENCY MODERATE SEVERITY EMERGENCY 97796 JUNIPER EDGARDO TYL 6 6 [facility] DEPARTMEN T VISIT EMERGENCY MODERATE SEVERITY EMERGENCY 04790 LIZA DE JESUS 6 6 [facility] DEPARTMEN T VISIT MODERATE SEVERITY EMERGENCY 02455 [facility] 5 5 [facility] DEPARTMEN CARE T VISIT PHYSICIAN MODERATE S SEVERITY EMERGENCY 41840 JUNIPER CASTRO GABRIELA 4 4 [facility] DEPARTMEN T VISIT EMERGENCY MODERATE SEVERITY EMERGENCY 08316 [facility] 4 4 REGIONAL DEPARTMEN MEDICAL T VISIT LOW/MODER SEVERITY [facility]OSP[facility] - 4 4 REGIONAL OUTPATIEN MEDICAL T EMERGENCY 95856 JUNIPER CIFUENTES ABE 4 4 [facility] DEPARTMEN T VISIT EMERGENCY MODERATE SEVERITY EMERGENCY 85403 JUNIPER BELL MAR 4 4 [facility] DEPARTMEN T VISIT EMERGENCY MODERATE SEVERITY EMERGENCY 92718 JUNIPER CIFUENTES ABE 4 4 [facility] DEPARTMEN T VISIT EMERGENCY MODERATE SEVERITY EMERGENCY 11187 JUNIPER FORTICH 4 4 [facility] BILLIE DEPARTMEN T VISIT EMERGENCY MODERATE SEVERITY EMERGENCY 54028 JUNIPER SOTINGEAN 4 4 [facility] DEPARTMEN T VISIT EMERGENCY MODERATE SEVERITY OFFICE 20550 [place] OUTPATIEN 4 4 PRIMARY JR SENAIT T VISIT HEALTH 15 CARE MINUTES OFFICE 32412 [facility] YAMRAJ OUTPATIEN 4 4 FAMILY PATRIA T NEW 20 CARE MINUTES CENTER EMERGENCY 96349 [facility] SONG 4 4 [facility] DEPARTMEN CARE T VISIT PHYSICANS MODERATE M SEVERITY [facility] - 4 4 [facility] INPATIENT OFFICE 46548 [place] OUTPATIEN 4 4 PRIMARY JR SENAIT T VISIT HEALTH 15 CARE MINUTES OFFICE 97768 [place] OUTPATIEN 4 4 PRIMARY JR SENAIT T VISIT HEALTH 15 CARE MINUTES OFFICE 26385 [place] OUTPATIEN 4 4 PRIMARY JR SENAIT T VISIT HEALTH 15 CARE MINUTES HOSPITAL [facility] - 4 4 REGIONAL OUTPATIEN MEDICAL T EMERGENCY 63871 [facility] 4 4 REGIONAL DEPARTMEN MEDICAL T VISIT LIMITED/M INOR PROB EMERGENCY 46449 KEYLA JED L 4 4 [facility] DEPARTMEN T VISIT EMERGENCY MODERATE SEVERITY EMERGENCY 07068 [facility] 4 4 REGIONAL DEPARTMEN MEDICAL T VISIT MODERATE SEVERITY [facility]OS[facility] - 4 4 REGIONAL OUTPATIEN MEDICAL T OFFICE 14234 [place] OUTPATIEN 4 4 PRIMARY JR SENAIT T VISIT HEALTH 15 CARE MINUTES OFFICE 72783 [place] OUTPATIEN 4 4 PRIMARY JR SENAIT T VISIT HEALTH 15 CARE MINUTES OFFICE 62218 [place] OUTPATIEN 4 4 PRIMARY JR SENAIT T VISIT HEALTH 15 CARE MINUTES OFFICE 55386 [place] OUTPATIEN 4 4 PRIMARY JR SENAIT T VISIT HEALTH 15 CARE MINUTES OFFICE 08942 [facility] OUTPATIEN 4 4 PRIMARY JR SENAIT T VISIT HEALTH 25 CARE MINUTES OFFICE 42454 [facility] OUTPATIEN 4 4 PRIMARY JR SENAIT T VISIT HEALTH 15 CARE MINUTES [facility] - 4 4 EAST OUTPATIEN T OFFICE 49080 [facility] [place] OUTPATIEN 4 4 PRIMARY JR SENAIT T VISIT HEALTH 25 CARE MINUTES [facility]ICE 34105 [facility] [address] [facility] [address] DEPARTMEN T VISIT MODERATE SEVERITY HOSPITAL [address] [facility] [address] [facility] EMERG[facility] 63210 CASTRO GABRIELA CASTRO GABRIELA [facility] DEPARTMEN T VISIT MODERATE SEVERITY HOSPITAL [address] [facility] [address] DEPARTMEN T VISIT LIMITED/M INOR PROB EMERGENCY [address] DEPARTMEN T VISIT LIMITED/M INOR PROB HOSPITAL [address] [facility] [address] DEPARTMEN T VISIT HIGH/URGE NT SEVERITY EMERGENCY 06768 ANJANA YEUNG 2 [facility] DEPARTMEN T VISIT MODERATE SEVERITY HOSPITAL [address] [facility] 20458 PHYSICIAN ILDEFONSO DIGGS [place] [address] SERVICES T VISIT OF 15 MEMORI MINUTES [facility] [address] [facility] OFF[facility] 63532 PHYSICIAN SINK DONTAE OUTPATIEN 2 2 SERVICES T NEW 30 OF MIN[facility]ES [facility] OFF[facility] 01239 [place] M[facility]ELINE OUTPATIEN 2 2 WOMEN'S FRA T VISIT CARE PLLC 15 MINUTES OFFICE 30307 [place] M[facility] OUTPATIEN 2 2 WOMEN'S FRA T VISIT CARE PLLC 15 MINUTES OFFICE 20531 [place] M[facility] OUTPATIEN 2 2 WOMEN'S FRA T VISIT CARE PLLC 15 MINUTES OFFICE 27233 [place] M[facility]INE OUTPATIEN 2 2 WOMEN'S FRA T VISIT CARE PLLC 10 MINUTES OFFICE 71028 [place] MADELINE OUTPATIEN 2 2 WOMEN'S FRA T VISIT CARE PLLC 15 MINUTES OFFICE 48430 MADELINE MADELINE OUTPATIEN 2 2 FRA FRA T VISIT 15 MINUTES OFFICE 92635 [place] PEARCE C OUTPATIEN 1 1 WOMEN'S T VISIT CARE PLLC 15 MINUTES OFFICE 90690 MADELINE MADELINE OUTPATIEN 1 1 FRA FRA T VISIT 15 MINUTES OFFICE 96582 MADELINE MADELINE OUTPATIEN 1 1 FRA FRA T VISIT 15 MINUTES OFFICE 31268 MADELINE MADELINE OUTPATIEN 1 1 FRA FRA T NEW 30 MINUTES [address] [address] EMERGENCY 24716 MARCI COVARRUBIAS 1 1 BIJ BIJ DEPARTMEN T VISIT MODERATE SEVERITY EMERGENCY 31205 PHYS SVC AXIBAL 1 1 OF [facility] DEPART[facility] T VISIT HIGH/URGE NT SEVERITY EMERGENCY 44115 PHYS SVC AXIBAL DEPT 1 1 OF [facility]IGH SE[facility]& [facility] 0 0 HOSPITAL OUTPATIEN T EMERGENCY 93409 PHYS SVC AXIBAL 0 0 OF [facility] T VISIT MODERATE SEVERITY EMERGENCY [address] [place] [address] 0 [facility] T VISIT HIGH/URGE NT SEVERITY EMERGENCY 68856 PHYSICIAN FEE BAR 0 0 [facility] VISIT MODERATE SEVERITY EMERGENCY [address] [place] [address] 0 [facility] T VISIT HIGH/URGE NT SEVERITY HOSPITAL [place] [address] 0 [facility] OUTPATIEN T EMERGENCY 33219 PHYS SVC AXIBAL 0 0 OF [facility] T VISIT MODERATE SEVERITY HOSPITAL [facility] - 0 0 [facility] OUTPATIEN DGE [facility] [place] [address] 0 HOSPITAL OUTPATIEN T OFFICE 39940 ANMOL ZAMBRANO, OUTPATI 0 0 KYLIE/HY ANGELO E T VISIT DEN RH 15 MINUTES HOSPITAL [facility] 0 0 HOSPITAL OUTPATIEN T EMERGENCY 70940 PHYS SVC MARCI, 0 0 OF [facility]TH [facility] T VISIT MODERATE SEVERITY EMERGENCY [address] [place] [address] 0 [facility] T VISIT LIMITED/M INOR PROB EMERGENCY 16979 PHYS SVC MARCI, 0 0 OF [facility] T VISIT MODERATE SEVERITY HOSPITAL [facility] 0 0 HOSPITAL OUTPATIEN T EMERGENCY 48408 PHYS SVC AXIBAL, 0 0 OF [facility] T VISIT MODERATE SEVERITY EMERGENCY 33669 [facility] 0 0 HOSPITAL DEPARTMEN T VISIT MODERATE SEVERITY [facility] - 0 0 HOSPITAL OUTPATIEN T HOSPITAL [facility] - 0 0 [place] OUTPATIEN DGE T HOSPITAL EMERGENCY 42782 AVINAHS GONSALES, 0 0 [place] [facility] LOW/MODER EMERGENCY SEVERITY SERVICES EMERGENCY 46668 [facility] 0 0 [facility] DGE T VISIT HOSPITAL LIMITED/M INOR PROB HOSPITAL [facility] - 0 0 [place] OUTPATIEN DGE T HOSPITAL OFFICE 99434 AUTUMN NUR 0 0 KYLIE/HY RIO L T VISIT [facility] 15 MINUTES OFFICE 27811 AUTUMN NUR 0 0 KYLIE/HY RIO L T VISIT [facility] 15 MINUTES OFFICE 22757 AUTUMN NUR 0 0 KYLIE/HY RIO L T VISIT DEN [facility] 25 MINUTES [facility] AVINASH - 0 0 [place] OUTPATI DGE T HOSPITAL OFFICE 24641 [facility] [address] [facility] - 9 9 HOSPITAL OUTPATI T OFFICE 26072 PHYS SVC SUNG, CONSULTAT 9 9 OF [facility]USH [facility] NEW/ESTAB PATIENT 30 MIN OFFICE 19323 AUTUMN [place] 9 9 BARB Weir T VISIT MED 15 CLINIC MINUTES OFFICE 49539 AUTUMN [place] 9 9 MEDICAL JUAN [place] T VISIT CLINIC 15 MINUTES EMERGENCY 13316 PHYS SVC AXIBAL, 9 9 OF [facility] T VISIT HIGH/URGE NT SEVERITY EMERGENCY 24432 PHYS SVC ANJANA, DEPT 9 9 OF [facility] VISIT HOSP [facility] HIGH SEVERITY& THREAT FUNCJ EMERGENCY 72259 [facility] 9 9 [facility] T VISIT LIMITED/M INOR PROB HOSPITAL [facility] 9 9 [facility] [address] [place] [id number] 9 [facility] T VISIT HIGH/URGE NT SEVERITY HOSPITAL [facility] 9 9 [facility] EMERG[facility] 45334 PHYS SVC AXIBAL, 9 9 OF [facility] T VISIT MODERATE SEVERITY OFFICE 89281 [facility] 9 9 MEDICAL CINDY Weir VISIT CLINIC 15 MINUTES EMERGENCY 84535 PHYSICIAN FANG, [address] [facility] T VISIT HOSPITAL MODERATE SEVERITY HOSPITAL [facility] 8 8 [facility] 73247 [facility] 8 8 [facility] T [facility]ISIT LIMITED/M INOR PROB OFFICE 04178 [facility] 8 8 MEDICAL MANUELITO Weir T VISIT CLINIC 15 MINUTES
--- OUTSIDE RECORDS SUMMARY | 2017-03-28 23:22 | External Medical Summary Rpt | CCD ---
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 GROUP TH DEV [place] L[place] [address] NEW ELLIJAY SURG 0 [facility] PATHOLOGY CLINIC PSC GROSS&OSMAN ROSCOPIC EXAM NEURAXIAL 97076 SUBUR[facility]AN MORLIER LABOR 0 ANESTHESI GAR ANALG/ANE A PSC S PLND VAGINAL DELIVERY VAGINAL 08901 PANIAGUA SIVA DELIVERY 0 GEORGIE GEORGIE ONLY W/POSTPAR HUMZA CARE OBSERVATI 07076 AVINASH ZAMBRANO ON/INPATI 0 LEOPOLDO CARVER ENT [facility] E MINUTES HOSP[facility] G0378 AVINASH DA SILVA OBSERVATI 0 ALISA CUELLAR ON [facility] PER HOUR 25501 RADIOLOGY PAMPATI BIOPHYSIC 0 SERVICES [facility] AL PROFILE W/O NON-STRES S TESTING CUL 69116 AVINASH DA SILVA PRSMPTV 0 PARISAINTAM CUELLAR PTHGNC [facility] SCRN W/COLONY ESTIMJ BLOOD [address] SEROLOGIC RH (D) THERAPEUT [address] PROPHYLAC TIC/DX INJECTION SUBQ/IM COLLECTIO [address] BLOOD VENIPUNCT URE ANTIBODY [address] RBC EACH SERUM TECHNIQUE BLOOD [address] [place] PREG 83358 SIVA PANIAGUA, UTERUS 0 MAI A MAI A W/DETAIL TR 1ST GESTATION ECHO 51714 SIVA PANIAGUA, 0 MAI A MAI A CARDIOVAS C W/WO M-MODE RECORDING NATRIURET [address] [place] [address] QUANTITAT CHRISTIANO BLOOD [address] COMPLETE AUTO&AUTO DIFRNTL WBC THROMBOPL [address] TIME PARTIAL PLASMA/WH OLE BLOOD COLLECTIO [address] BLOOD VENIPUNCT URE COMPREHEN [address] METABOLIC PANEL CREATINE [address] FRACTION ONLY PROTHROMB 65480 [facility] IN TIME [address] [place] [address] HOSPITAL CREATINE [address] [place] [address] RADADVANT RADADVANT UTERUS 0 AGE LLC AGE LLC AFTER 1ST TRIMEST GESTATION THERAPEUT [address] PROPHYLAC TIC/[place] INJECTION SUBQ[place] [address] AVINASH DA SILVA 0 ALISA CUELLAR UTERUS E [facility] 1/> FETUSES US PREG 63101 RADIOLOGY GRAY, UTERUS 0 SERVICES DHIRENKUM REAL TIME AR W/IMAGE DCMTN TRANSVAG CULTURE 77728 AVINASH DA SILVA BACTERIAL 0 YAMILETCKINTAM BALBUENARI [facility] VE COLONY COUNT URINE URINE 90289 EAMON EAMON 0 [facility] CENTER COLOR CMPRSN METHS URINE [address] TEST VISUAL COLOR CMPRSN METHS ANES 07517 PHYSICIAN CHAMBERLA INTRAPERI 9 S IN [facility] SERVICES UPPER OF ABDOMEN [facility] W/LAPS NOS LAPAROSCO 03721 [facility] PY SURG [address] [place] [address] CHOLECYST ECTOMY LEVEL III 28410 AMES, AMES, SURG [address] [place] [address] PATHOLOGY GROSS&OSMAN ROSCOPIC EXAM ECG 04259 [facility] ROUTINE [address] [place] [address] ECG W/LEAST 12 LDS TRCG ONLY W/O I&R 3D 80325 RADADVANT DOWNING, RENDERING 9 AGE LLC NITESH C W/INTERP & [place] [address] RADADVANT DOWNING, ABDOMEN 9 AGE LLC NITESH C W/CONTRAS T MATERIAL CT PELVIS 66458 [facility] DOWNING, 9 AGE LLC NITESH C W/CONTRAS T MATERIAL CT PELVIS 12493 [facility] DOWNING, 9 AGE LLC NITESH C W/[place] [address] RADADVANT DOWNING, ABDOMEN 9 AGE LLC NITESH C W/CONTRAS T MATERIAL 3D 65200 RADADVANT DOWNING, RENDERING 9 AGE TAMMY Macias W/INTERP & POSTPROCE SS SUPERVISI ON AMB A0427 [facility] [address] [place] [address] EMERGENCY EMERGENCY EMERGENCY AMBULANCE AMBULANCE TRANSPORT LEVEL [address] PER EMERGENCY EMERGENCY STATUTE MILE AMBULANCE AMBULANCE GROUND A[address] PER EMERGENCY EMERGENCY STATUTE MILE AMBULANCE AMBULANCE AMB A0427 [facility] [address] [place] [address] EMERGENCY EMERGENCY EMERGENCY AMBULANCE [place] [address] [place] [address] SPINE W/O CONTRAST MATERIAL RADEX 32708 RADADVANT DOWNING, RIBS UNI 9 AGE TAMMY Macias W/POSTERO ANT CH MINIMUM 3 VIEWS RADIOLOGI 04763 [facility] DOWNING, C 9 AGE TAMMY Macias EXAMINATI ON KNEE 3 VIEWS THERAPEUT [address] PROPHYLAC TIC/DX INJECTION SUBQ/IM 3D [address] W/INTERP & [place] [address] RADADVANT DOWNING, HEAD/BRAI 9 AGE TAMMY Macias N W/O CONTRAST MATERIAL ADMN SET A7003 [facility] SM VOL 9 [facility] [place] NONFILTR DRUGS DRUGS PNEUMAT NEBULIZR DISPBL NEBULIZER E0570 [facility] WITH 9 [facility] [place] COMPRESSO DRUGS DRUGS R AREO MASK A7015 [facility] USED W/ 9 CENTER C[place] [address] 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 FREE 9 AMERIC AMERIC [place] [address] 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 THYROID 9 AMERIC AMERIC STIMULATI HOLDING HOLDING NG HORMONE TSH [facility] 50834 [facility], [facility] [address] [place] [address] MANAGEMEN T 30 MIN/< SBSQ [address]/DAY CLINIC 25 MINUTES SBSQ [address]/DAY CLINIC 25 MINUTES INITIAL 41711 [facility] 8 MEDICAL MANUELITO J CARE/DAY CLINIC 50 MINUTES RADIOLOGI 48344 CNTRL Colleen PEREZ 8 RADIOLOGY GREGORY G EXAMINATI ON CHEST SINGLE VIEW FRONTAL Encounters Encounter Start End Date Code Location Performer Type Date EMERGENCY 13152 JUNIPER EDGARDO 7 7 [facility] DEPART[facility] T VISIT EMERGENCY HIGH/URGE NT SEVERITY OFFICE 75458 CUMBERLAN SAMIA OUTPATIEN 6 6 D FAMILY SHE T VISIT MEDICAL 25 CE MINUTES OFFICE 56640 CUMBERLAN CHAMBERS AMA OUTPATIEN 6 6 D FAMILY T VISIT MEDICAL 15 CE MINUTES EMERGENCY 97718 JUNALLEY CUNHASON 6 6 [facility] DEPARTMEN T VISIT EMERGENCY MODERATE SEVERITY EMERGENCY 72689 JUNIPER EDGARDO TYL 6 6 [facility] DE[facility] T VISIT EMERGENCY MODERATE SEVERITY EMERGENCY 14508 LIZA DE JESUS 6 6 [facility] DEPARTMEN T VISIT MODERATE SEVERITY EMERGENCY 07079 [facility] 5 5 [facility] DEPARTMEN CARE T VISIT PHYSICIAN MODERATE S SEVERITY EMERGENCY 73844 JUNIPER CASTRO GABRIELA 4 4 [facility] DEPART[facility] T VISIT EMERGENCY MODERATE SEVERITY EMERGENCY 41344 [facility] 4 4 REGIONAL DEPARTMEN MEDICAL T VISIT LOW/MODER SEVERITY [facility]OSP[facility] - 4 4 REGIONAL OUTPATIEN MEDICAL T EMERGENCY 02172 JUNIPER CIFUENTES ABE 4 4 [facility] DEPART[facility] T VISIT EMERGENCY MODERATE SEVERITY EMERGENCY 46298 JUNIPER BELL MAR 4 4 [facility] DEPART[facility] T VISIT EMERGENCY MODERATE SEVERITY EMERGENCY 82213 JUNIPER CIFUENTES ABE 4 4 [facility] DEPARTMEN T VISIT EMERGENCY MODERATE SEVERITY EMERGENCY 55298 JUNIPER FORTICH 4 4 [facility] DEPARTMEN T VISIT EMERGENCY MODERATE SEVERITY EMERGENCY 84418 JUNIPER SOTINGEAN 4 4 [facility] DEPARTMEN T VISIT EMERGENCY MODERATE SEVERITY OFFICE 52307 [place] OUT[facility] 4 4 PRIMARY JR SENAIT T VISIT HEALTH 15 CARE MINUTES OFFICE 25454 [facility] YAMRAJ OUTPATIEN 4 4 FAMILY PATRIA T NEW 20 CARE MINUTES CENTER EMERGENCY 46765 [facility] SONG 4 4 [facility] DEPARTMEN CARE T VISIT PHYSICANS MODERATE M SEVERITY HOSPITAL [facility] - 4 4 [facility] INPATIENT OFFICE 52641 [place] OUTPATI[facility] 4 4 PRIMARY JR SENAIT T VISIT HEALTH 15 CARE MINUTES OFFICE 91417 [place] OUTPATI[facility] 4 4 PRIMARY JR SENAIT T VISIT HEALTH 15 CARE MINUTES OFFICE 92458 [place] OUTPATIEN 4 4 PRIMARY JR SENAIT T VISIT HEALTH 15 CARE MINUTES HOSPITAL [place] - 4 4 REGIONAL OUTPATIEN MEDICAL T EMERGENCY 46802 [facility] 4 4 REGIONAL DEPARTMEN MEDICAL T VISIT LIMITED/M INOR PROB EMERGENCY 73302 KEYLA JED L 4 4 [facility] DEPART[facility] T VISIT EMERGENCY MODERATE SEVERITY EMERGENCY 15947 [facility] 4 4 REGIONAL DEPARTMEN MEDICAL T VISIT MODERATE SEVERITY [facility]OSP[facility] - 4 4 REGIONAL OUTPATIEN MEDICAL T OFFICE 75947 [place] OUTPATIEN 4 4 PRIMARY JR SENAIT T VISIT HEALTH 15 CARE MINUTES OFFICE 44905 [place] OUTPATIEN 4 4 PRIMARY JR SENAIT T VISIT HEALTH 15 CARE MINUTES OFFICE 22907 [place] OUTPATIEN 4 4 PRIMARY JR SENAIT T VISIT HEALTH 15 CARE MINUTES OFFICE 04479 [place] OUTPATIEN 4 4 PRIMARY JR SENAIT T VISIT HEALTH 15 CARE MINUTES OFFICE 49430 [place] OUTPATIEN 4 4 PRIMARY JR SENAIT T VISIT HEALTH 25 CARE MINUTES OFFICE 57989 [place] OUTPATIEN 4 4 PRIMARY JR SENAIT T VISIT HEALTH 15 CARE MINUTES HOSPITAL [facility] - 4 4 EAST OUTPATIEN T OFFICE 66448 [place] OUTPATIEN 4 4 PRIMARY JR SENAIT T VISIT HEALTH 25 CARE MINUTES OFFICE 19625 [facility] BEREAEN [address] [facility] EMERGENCY [address] DEPARTMEN T VISIT MODERATE SEVERITY HOSPITAL [address] [facility] HOSPITAL [address] [facility] EMERGENCY 47980 CASTRO GABRIELA CASTRO GABRIELA [facility] DEPARTMEN T VISIT MODERATE SEVERITY HOSPITAL [address] [facility] [address] DEPARTMEN T VISIT LIMITED/M INOR PROB EMERGENCY [address] DEPARTMEN T VISIT LIMITED/M INOR PROB HOSPITAL [address] [facility] [address] DEPARTMEN T VISIT HIGH/URGE NT SEVERITY EMERGENCY 09860 ANJANA YEUNG 2 [facility] DEPARTMEN T VISIT MODERATE SEVERITY HOSPITAL [address] [facility] OFF[facility] 78695 PHYSICIAN ILDEFONSO DIGGS [place] [address] SERVICES T VISIT OF 15 MEMORI MINUTES [facility] [address] [facility] OFF[facility] 52390 PHYSICIAN SINK DONTAE OUTPATIEN 2 2 SERVICES T NEW 30 OF MINUTES [facility] 23632 [place] M[place]EL[place] OUTPATIEN 2 2 WOMEN'S FRA T VISIT CARE PLLC 15 MINUTES OFFICE 88685 [place] M[place]EL[place] OUTPATIEN 2 2 WOMEN'S FRA T VISIT CARE PLLC 15 MINUTES OFFICE 24625 [place] M[place]EL[place] OUTPATIEN 2 2 WOMEN'S FRA T VISIT CARE PLLC 15 MINUTES OFFICE 17662 [place] M[place]EL[place] OUTPATIEN 2 2 WOMEN'S FRA T VISIT CARE PLLC 10 MINUTES OFFICE 66071 [place] M[place]EL[place] OUTPATIEN 2 2 WOMEN'S FRA T VISIT CARE PLLC 15 MINUTES OFFICE 23037 MADELINE MADELINE OUTPATIEN 2 2 FRA FRA T VISIT 15 MINUTES OFFICE 21937 [place] PEARCE C OUTPATIEN 1 1 WOMEN'S T VISIT CARE PLLC 15 MINUTES OFFICE 43698 MADELINE MADELINE OUTPATIEN 1 1 FRA FRA T VISIT 15 MINUTES OFFICE 99758 MADELINE MADELINE OUTPATIEN 1 1 FRA FRA T VISIT 15 MINUTES OFFICE 59450 MADELINE MADELINE OUTPATIEN 1 1 FRA FRA T NEW 30 MINUTES HOSPITAL [address] EMERGENCY 96738 MARCI COVARRUBIAS 1 1 BIJ BIJ DEPARTMEN T VISIT MODERATE SEVERITY EMERGENCY 86406 PHYS SVC AXIBAL 1 1 OF [facility] CAR DEPARTMEN HOSP INC T VISIT HIGH/URGE NT SEVERITY EMERGENCY 16436 PHYS SVC AXIBAL DEPT 1 1 OF [facility] CAR VISIT [facility] HIGH SEVERITY& THREAT [facility] 0 0 HOSPITAL OUTPATIEN T EMERGENCY 52393 PHYS SVC AXIBAL 0 0 OF [facility] T VISIT MODERATE SEVERITY EMERGENCY [address] [place] [address] 0 [facility] T VISIT HIGH/URGE NT SEVERITY EMERGENCY 54741 PHYSICIAN FEE BAR 0 0 [facility] VISIT MODERATE SEVERITY EMERGENCY [address] [place] [address] 0 [facility] T VISIT HIGH/URGE NT SEVERITY HOSPITAL [place] [address] 0 [facility] OUTPATIEN T EMERGENCY 68810 PHYS SVC AXIBAL 0 0 OF [facility] T VISIT MODERATE SEVERITY HOSPITAL [facility] 0 0 [facility] [place] [address] 0 HOSPITAL OUTPATIEN T OFFICE 48597 ANMOL ZAMBRANO, OUTPATI 0 0 KYLIE/HY ANGELO E T VISIT DEN RH 15 MINUTES HOSPITAL [facility] 0 0 HOSPITAL OUTPATIEN T EMERGENCY 91169 PHYS SVC MARCI, 0 0 OF [facility] T VISIT MODERATE SEVERITY EMERGENCY [address]14[address] [place] [address] 0 [facility] T VISIT LIMITED/M INOR PROB EMERGENCY 26144 PHYS SVC MARCI, 0 0 OF [facility] T VISIT MODERATE SEVERITY HOSPITAL [facility] 0 0 HOSPITAL OUTPATIEN T EMERGENCY 57176 PHYS SVC AXIBAL, 0 0 OF [facility] TRACI [facility] T VISIT MODERATE SEVERITY EMERGENCY 84348 [facility] 0 0 HOSPITAL DEPARTMEN T VISIT MODERATE SEVERITY [facility] 0 0 HOSPITAL OUTPATIEN T HOSPITAL [facility] - 0 0 [facility] OUTPATIEN DGE T HOSPITAL EMERGENCY 18063 AVINASH GONSALES, 0 0 [facility] [facility] LOW/MODER EMERGENCY SEVERITY SERVICES EMERGENCY 27620 AVINASH 0 0 [facility] DGE T VISIT HOSPITAL LIMITED/M INOR PROB HOSPITAL [facility] - 0 0 [place] OUTPATIEN DGE T HOSPITAL OFFICE 75875 AUTUMN NUR 0 0 KYLIE/HY RIO L T VISIT DEN [facility] 15 MINUTES OFFICE 09397 AUTUMN NUR 0 0 KYLIE/HY RIO L T VISIT DEN [facility] 15 MINUTES OFFICE 68756 AUTUMN NUR 0 0 KYLIE/HY RIO L T VISIT DEN [facility] 25 MINUTES [facility] AVINASH - 0 0 [place] OUTPATI DGE T HOSPITAL OFFICE 64907 EAMON KNUTSON [facility] [address] [facility] - 9 9 HOSPITAL OUTPATI T OFFICE 18696 PHYS SVC SUNG, CONSULTAT 9 9 OF [facility] PIYUSH Weir ION HOSP INC NEW/ESTAB PATIENT 30 MIN OFFICE 16222 AUTUMN MONROE 9 9 BARB Weir T VISIT MED 15 CLINIC MINUTES OFFICE 28081 AUTUMN STANTON 9 9 MEDICAL JUAN Macias T VISIT CLINIC 15 MINUTES EMERGENCY 14683 PHYS SVC AXIBAL, 9 9 OF [facility] T VISIT HIGH/URGE NT SEVERITY EMERGENCY 46130 PHYS SVC ANJANA, DEPT 9 9 OF [facility] VISIT HOSP [facility] HIGH SEVERITY& THREAT FUNCJ EMERGENCY 64051 [facility] 9 9 [facility] T VISIT LIMITED/M INOR PROB HOSPITAL [facility] 9 9 H[facility]PITAL [facility] EMERGENCY [address] [place] [address] 9 [facility] T VISIT HIGH/URGE NT SEVERITY HOSPITAL [facility] 9 9 [facility] EMERGENCY 85149 PHYS SVC AXIBAL, 9 9 OF [facility] T VISIT MODERATE SEVERITY OFFICE 96429 EJ KAM [facility] 9 9 MEDICAL CINDY Weir VISIT CLINIC 15 MINUTES EMERGENCY 48105 PHYSICIAN FANG, 8 8 [facility] T VISIT HOSPITAL MODERATE SEVERITY [facility]OSPITAL [facility] 8 8 [facility] EM[facility] 72302 [facility] 8 8 [facility] T VISIT LIMITED/M INOR PROB OFFICE 76300 LAURA JONES [facility] 8 8 MEDICAL MANUELITO Weir T VISIT CLINIC 15 MINUTES
--- OUTSIDE RECORDS SUMMARY | 2017-03-28 23:24 | External Medical Summary Rpt | CCD ---
Demographics Preferred Language Hungarian Marital Status Unknown Hoahaoism Affiliation Unknown Race Unknown Ethnic Group Unknown Author Author , JANIS BRUCE Address Unknown Phone Immunization No patient found.
--- OUTSIDE RECORDS SUMMARY | 2017-03-28 23:24 | External Medical Summary Rpt | CCD ---
Demographics Preferred Language Syriac Marital Status Unknown Sikh Affiliation Unknown Race Unknown Ethnic Group Unknown Author Author , JANIS BRUCE Address Unknown Phone Immunization No patient found.
== END ==
LOC: ER 18:59 → EDBD 18:59 → ER 19:48
PROVIDERS: Emergency Medicine
DX: Z02.89 Encounter for other administrative examinations (principal); F17.210 Nicotine dependence, cigarettes, uncomplicated